=== PATIENT | male | born 1990 ===

== ENCOUNTER 2018-10-29 16:43 | Inpatient (IN) ==
[2018-10-29] MEDS ORDERED: CEFTAROLINE 600 MG in SODIUM CHLORIDE 0.9% 100 ML IV STA (16:50)
[2018-10-29 17:21] LABS: Basophils # 0.1 10*3/uL (0.0-0.2); Basophils % 0.4 % (0.0-0.8); Eosinophils # 0.5 10*3/uL (0.0-0.87); Eosinophils % 3.9 % (0.00-10.9); Hematocrit 29.8 VOL% (42.0-52.0); Hemoglobin 9.9 GM/DL (14.0-18.0); Immature Granulocytes % 0.9 %; Immature Granulocytes Absolute 0.11 #; Lymphocytes # 1.9 10*3/uL (1.4-4.0); Lymphocytes % 14.6 % (21.2-54.2); Mean Corpuscular HGB Conc 33.2 GM/DL (32-36); Mean Platelet Volume 10.2 FL (9.6-12.0); Monocytes % 11.5 % (1.7-12.7); Neutrophils % 68.7 % (38.7-73.9); Platelet Count 277 T/CUMM (130-400); Red Blood Count 3.35 MC/CUMM (3.8-5.5); Red Cell Distribution Width 12.7 % (9.3-17.3); White Blood Count 12.7 T/CUMM (4-12)
[2018-10-29 17:41] LABS: Albumin 2.5 G/DL (3.4-5.0); Bilirubin,Total 0.5 MG/DL (0.2-1.0); Calcium 8.1 MG/DL (8.5-10.1); Osmolality,Calculated 285.8 MOS/KG (273-304); Total Protein 7.5 G/DL (6.4-8.3)
[2018-10-29] MEDS ORDERED: ACETAMINOPHEN 325 MG TABLET PO PRN (19:41)
[2018-10-29] MEDS ORDERED: ONDANSETRON 4 MG/2 ML VIAL IV PRN (19:41)
[2018-10-29] MEDS ORDERED: HYDROmorphone 2 MG/1 ML VIAL IV PRN (19:41)
[2018-10-29] MEDS ORDERED: DEXTROSE 10% 250 ML BAG IV PRN (19:41)
[2018-10-29] MEDS ORDERED: GLUCAGON 1 MG VIAL IM PRN (19:41)
[2018-10-29] MEDS: LACTATED RINGERS 1,000 ML IV SCH (20:43)
[2018-10-29] MEDS: ENOXAPARIN 40 MG/0.4 ML SYRINGE SUBCUT SCH (20:43)
[2018-10-29] MEDS: INSULIN REGULAR 100 UNIT/ML SUBCUT SCH (20:44)
[2018-10-29] MEDS: PIPERACILLIN/TAZOBACTAM 3,375 MG in SODIUM CHLORIDE 0.9% 100 ML IV SCH (20:44)
[2018-10-30] MEDS: VANCOMYCIN INJ 750 MG in SODIUM CHLORIDE 0.9% 250 ML IV SCH ×2 (01:06→12:01)
[2018-10-30] MEDS: PIPERACILLIN/TAZOBACTAM 3,375 MG in SODIUM CHLORIDE 0.9% 100 ML IV SCH ×3 (04:35→21:26)
[2018-10-30 04:54] LABS: Basophils % 0.3 % (0.0-0.8); Eosinophils # 0.4 10*3/uL (0.0-0.87); Eosinophils % 4.4 % (0.00-10.9); Hematocrit 29.3 VOL% (42.0-52.0); Hemoglobin 9.3 GM/DL (14.0-18.0); Immature Granulocytes % 0.6 %; Immature Granulocytes Absolute 0.06 #; Lymphocytes # 1.1 10*3/uL (1.4-4.0); Lymphocytes % 10.8 % (21.2-54.2); Mean Corpuscular HGB Conc 31.7 GM/DL (32-36); Mean Corpuscular Volume 91.3 FL (87-102); Mean Platelet Volume 10.6 FL (9.6-12.0); Monocytes % 9.9 % (1.7-12.7); Platelet Count 255 T/CUMM (130-400); Red Blood Count 3.21 MC/CUMM (3.8-5.5); Red Cell Distribution Width 12.9 % (9.3-17.3); White Blood Count 9.9 T/CUMM (4-12)
[2018-10-30 05:34] LABS: Band Neutrophils 3 % (0-10); Eosinophils 6 % (0-10); Lymphocytes 12 % (20-55); Platelet Estimate Normal; Segmented Neutrophils 75 % (50-85); Total Cells Counted 100
[2018-10-30 05:40] LABS: Albumin 2.4 G/DL (3.4-5.0); Bilirubin,Total 0.5 MG/DL (0.2-1.0); Calcium 8.4 MG/DL (8.5-10.1); Osmolality,Calculated 292.7 MOS/KG (273-304); Total Protein 6.8 G/DL (6.4-8.3)
[2018-10-30] MEDS ORDERED: BUPIVACAINE MPF 0.25% /EPI 30 ML VIAL ONE (08:20)
[2018-10-30] MEDS ORDERED: LIDOCAINE 1%/EPI INJ 20 ML VIAL ONE (08:20)
[2018-10-30] MEDS ORDERED: LIDOCAINE 2% TOP JELLY 20 ML VIAL INTRAURETH ONE (08:23)
[2018-10-30] MEDS: INSULIN REGULAR 100 UNIT/ML SUBCUT SCH ×5 (08:28→23:21)
[2018-10-30] MEDS ORDERED: PROPOFOL 200 MG/20 ML VIAL IV ONE (09:35)
[2018-10-30] MEDS ORDERED: SEVOFLURANE 1 UNIT/15 MINUTE INH ONE (09:35)
[2018-10-30] MEDS ORDERED: DEXAMETHASONE 4 MG/1 ML VIAL ONE (09:35)
[2018-10-30] MEDS ORDERED: fentaNYL 100 MCG/2 ML VIAL ONE (09:35)
[2018-10-30] MEDS ORDERED: MIDAZOLAM 2 MG/2 ML VIAL ONE (09:35)
[2018-10-30] MEDS ORDERED: LACTATED RINGERS 1,000 ML IV ONE (09:36)
[2018-10-30] MEDS ORDERED: PHENYLEPHRINE 1 MG/10 ML SYRINGE IV ONE (09:36)
[2018-10-30] MEDS ORDERED: KETOROLAC 30 MG/1 ML VIAL ONE (09:36)
[2018-10-30] MEDS ORDERED: ONDANSETRON 4 MG/2 ML VIAL ONE (09:36)
[2018-10-30] MEDS ORDERED: HYDROmorphone 2 MG/1 ML VIAL IV PRN (09:40)
[2018-10-30] MEDS ORDERED: ONDANSETRON 4 MG/2 ML VIAL IV PRN (09:40)
[2018-10-30] MEDS ORDERED: INSULIN REGULAR 100 UNIT/ML ONE (09:52)
[2018-10-30] MEDS: PANTOPRAZOLE 40 MG TABLET PO SCH (10:20)
[2018-10-30] MEDS: LACTATED RINGERS 1,000 ML IV SCH (10:25)
[2018-10-30] MEDS ORDERED: INSULIN NPH/REGULAR 70/30 100 UNIT/ML SUBCUT ONE (13:00)
[2018-10-30] MEDS ORDERED: INSULIN LISPRO 100 UNIT/ML SUBCUT SCH (17:00)
[2018-10-30] MEDS: INSULIN NPH/REGULAR 70/30 100 UNIT/ML SUBCUT SCH (17:25)
[2018-10-30] MEDS: ENOXAPARIN 40 MG/0.4 ML SYRINGE SUBCUT SCH (21:25)
[2018-10-31] MEDS: VANCOMYCIN INJ 750 MG in SODIUM CHLORIDE 0.9% 250 ML IV SCH ×2 (01:30→12:03)
[2018-10-31 04:59] LABS: Basophils % 0.2 % (0.0-0.8); Eosinophils # 0.4 10*3/uL (0.0-0.87); Eosinophils % 3.2 % (0.00-10.9); Hematocrit 27.1 VOL% (42.0-52.0); Hemoglobin 8.9 GM/DL (14.0-18.0); Immature Granulocytes % 0.7 %; Immature Granulocytes Absolute 0.08 #; Lymphocytes # 2.1 10*3/uL (1.4-4.0); Lymphocytes % 17.3 % (21.2-54.2); Mean Corpuscular HGB Conc 32.8 GM/DL (32-36); Mean Platelet Volume 10.5 FL (9.6-12.0); Monocytes % 7.9 % (1.7-12.7); Neutrophils % 70.7 % (38.7-73.9); Platelet Count 270 T/CUMM (130-400); Red Blood Count 3.01 MC/CUMM (3.8-5.5); Red Cell Distribution Width 13.1 % (9.3-17.3); White Blood Count 12.3 T/CUMM (4-12)
[2018-10-31] MEDS: PIPERACILLIN/TAZOBACTAM 3,375 MG in SODIUM CHLORIDE 0.9% 100 ML IV SCH ×3 (05:10→21:10)
[2018-10-31 05:21] LABS: Osmolality,Calculated 283.3 MOS/KG (273-304)
[2018-10-31] MEDS ORDERED: INSULIN LISPRO 100 UNIT/ML SUBCUT SCH (08:00)
[2018-10-31] MEDS: PANTOPRAZOLE 40 MG TABLET PO SCH (08:45)
[2018-10-31] MEDS: INSULIN REGULAR 100 UNIT/ML SUBCUT SCH ×4 (08:45→21:17)
[2018-10-31] MEDS: INSULIN NPH/REGULAR 70/30 100 UNIT/ML SUBCUT SCH ×2 (08:46→16:27)
[2018-10-31] MEDS ORDERED: POTASSIUM CHLORIDE 20 MEQ TABLET PO PRN (13:04)
[2018-10-31] MEDS: LACTATED RINGERS 1,000 ML IV SCH (18:13)
[2018-10-31] MEDS ORDERED: INSULIN GLARGINE 100 UNIT/ML SUBCUT SCH (21:00)
[2018-10-31] MEDS: ENOXAPARIN 40 MG/0.4 ML SYRINGE SUBCUT SCH (21:10)
[2018-11-01] MEDS: VANCOMYCIN INJ 750 MG in SODIUM CHLORIDE 0.9% 250 ML IV SCH ×3 (01:05→12:15)
[2018-11-01 01:10] LABS: Basophils % 0.3 % (0.0-0.8); Eosinophils # 0.4 10*3/uL (0.0-0.87); Eosinophils % 3.8 % (0.00-10.9); Hematocrit 28.3 VOL% (42.0-52.0); Hemoglobin 9.5 GM/DL (14.0-18.0); Immature Granulocytes % 1.1 %; Immature Granulocytes Absolute 0.11 #; Lymphocytes # 2.2 10*3/uL (1.4-4.0); Lymphocytes % 22.3 % (21.2-54.2); Mean Corpuscular HGB Conc 33.6 GM/DL (32-36); Mean Corpuscular Volume 89.8 FL (87-102); Mean Platelet Volume 10.4 FL (9.6-12.0); Monocytes % 7.9 % (1.7-12.7); Neutrophils % 64.6 % (38.7-73.9); Platelet Count 279 T/CUMM (130-400); Red Blood Count 3.15 MC/CUMM (3.8-5.5); Red Cell Distribution Width 13.1 % (9.3-17.3); White Blood Count 9.7 T/CUMM (4-12)
[2018-11-01 01:27] LABS: Osmolality,Calculated 287.3 MOS/KG (273-304)
[2018-11-01] MEDS: PIPERACILLIN/TAZOBACTAM 3,375 MG in SODIUM CHLORIDE 0.9% 100 ML IV SCH ×3 (05:15→20:53)
[2018-11-01] MEDS: PANTOPRAZOLE 40 MG TABLET PO SCH (09:24)
[2018-11-01] MEDS: INSULIN NPH/REGULAR 70/30 100 UNIT/ML SUBCUT SCH ×2 (09:24→16:41)
[2018-11-01] MEDS: INSULIN REGULAR 100 UNIT/ML SUBCUT SCH ×4 (09:26→20:55)
[2018-11-01] MEDS: ENOXAPARIN 40 MG/0.4 ML SYRINGE SUBCUT SCH (20:53)
[2018-11-02] MEDS: VANCOMYCIN INJ 750 MG in SODIUM CHLORIDE 0.9% 250 ML IV SCH (00:54)
[2018-11-02] MEDS: PIPERACILLIN/TAZOBACTAM 3,375 MG in SODIUM CHLORIDE 0.9% 100 ML IV SCH (05:23)
[2018-11-02 08:20] VITALS: BP 134/65
[2018-11-02] MEDS ORDERED: CLINDAMYCIN 300 MG CAPSULE PO SCH (09:00)
[2018-11-02] MEDS ORDERED: FLUCONAZOLE 200 MG TABLET PO SCH (09:00)
[2018-11-02] MEDS ORDERED: CHOLESTYRAMINE 4 GM PACK PO SCH (09:00)
[2018-11-02] MEDS: INSULIN REGULAR 100 UNIT/ML SUBCUT SCH (10:33)
[2018-11-02] MEDS: INSULIN NPH/REGULAR 70/30 100 UNIT/ML SUBCUT SCH (10:34)
[2018-11-02] MEDS: PANTOPRAZOLE 40 MG TABLET PO SCH (10:35)
== END 2018-11-02 12:15 | disposition home or self-care (01) | DRG 982 ==
LOC: EDUNIT# → EDBD → N.ED 16:43 → N.EDINP 17:15 → N.2E 19:09
PROVIDERS: ADMIT Surgery; ATTEND Surgery

== ENCOUNTER 2018-12-09 09:45 | Inpatient (IN) ==
[2018-12-09] MEDS ORDERED: SODIUM CHLORIDE 0.9% 1,000 ML IV STA (10:08)
[2018-12-09 10:23] LABS: Basophils % 0.2 % (0.0-0.8); Eosinophils # 0.1 10*3/uL (0.0-0.87); Eosinophils % 0.7 % (0.00-10.9); Hematocrit 31.3 VOL% (42.0-52.0); Hemoglobin 10.2 GM/DL (14.0-18.0); Immature Granulocytes % 0.7 %; Immature Granulocytes Absolute 0.12 #; Lymphocytes # 0.9 10*3/uL (1.4-4.0); Lymphocytes % 4.9 % (21.2-54.2); Mean Corpuscular HGB Conc 32.6 GM/DL (32-36); Mean Corpuscular Volume 88.7 FL (87-102); Monocytes % 7.6 % (1.7-12.7); Neutrophils % 85.9 % (38.7-73.9); Platelet Count 360 T/CUMM (130-400); Red Blood Count 3.53 MC/CUMM (3.8-5.5); Red Cell Distribution Width 12.2 % (9.3-17.3); White Blood Count 17.7 T/CUMM (4-12)
[2018-12-09 10:43] LABS: Allen Test Positive; Pt O2 Delivery Device Room Air
[2018-12-09 10:44] LABS: ABG Base Excess -7.4 MMOL/L (-2.5-2.5); ABG HCO3 18.4 MMOL/L (20-26); ABG Oxygen Saturation 98.1 % (95-100); ABG PCO2 35.9 MM HG (35-48); ABG PH 7.313 (7.35-7.45); ABG TCO2 16.5 MMOL/L (23-27)
[2018-12-09 10:53] LABS: Albumin 2.4 G/DL (3.4-5.0); Bilirubin,Total 0.5 MG/DL (0.2-1.0); Osmolality,Calculated 289.1 MOS/KG (273-304); Total Protein 8.2 G/DL (6.4-8.3)
[2018-12-09 10:56] LABS: Amorphous Crystals,Urine Occasional /HPF (Few); Apearance,Urine CLEAR (Clear); Bacteria,Urine Occasional /HPF (Few); Bilirubin,Urine Negative (Negative); Blood, Urine Negative (Negative); Glucose,Urine (UA) >=500 mg/dL (Negative); Ketones,Urine Negative (Negative); Mucus,Urine Occasional /LPF (Occasional); Nitrite,Urine Negative (Negative); Protein,Urine Negative; RBC,Urine <1 /HPF (0-4); Squamous Epithelial Cell,Urine Occasional /HPF (0-10); Urine Color Straw (Yellow); Urine Specific Gravity 1.025 (1.001-1.035); Urine Urobilinogen < 2.0 EU/DL (0.2-1.0); WBC,Urine <1 /HPF (0-6)
[2018-12-09] MEDS ORDERED: INSULIN REGULAR 100 UNIT/ML IV STA (10:56)
[2018-12-09 10:58] LABS: Band Neutrophils 2 % (0-10); Eosinophils 1 % (0-10); Lymphocytes 5 % (20-55); Platelet Estimate Normal; Segmented Neutrophils 86 % (50-85); Total Cells Counted 100
[2018-12-09 10:59] LABS: Anisocytosis Slight
[2018-12-09 11:38] LABS: Barbiturates Screen,Urine Negative (Negative); Benzodiazepines Screen,Urine Negative (Negative); Cannabinoid Screen,Urine Negative (Negative); Opiate Screen,Urine Negative (Negative); Phencyclidine Screen,Urine Negative (Negative)
[2018-12-09] MEDS ORDERED: INSULIN REGULAR 100 UNIT/ML IV ONE ×4 (12:35→23:12)
[2018-12-09] MEDS ORDERED: SODIUM CHLORIDE 0.9% IV PRN (12:35)
[2018-12-09] MEDS ORDERED: MAGNESIUM SULF RIDER 2 GM in PREMIX 1 EACH IV PRN (12:35)
[2018-12-09] MEDS ORDERED: SODIUM BICARB INJ 100 MEQ in STERILE WATER INJ 400 ML IV PRN (12:35)
[2018-12-09] MEDS ORDERED: SODIUM CHLORIDE 0.9% 1,000 ML IV ONE (12:35)
[2018-12-09] MEDS ORDERED: INSULIN REGULAR DRIP 100 ML IV SCH (12:35)
[2018-12-09] MEDS ORDERED: SODIUM PHOSPHATE IV PRN (12:35)
[2018-12-09] MEDS ORDERED: DEXTROSE 50% 25 GM/50 ML VIAL IV PRN ×2 (12:35)
[2018-12-09] MEDS ORDERED: MAGNESIUM SULF RIDER 4 GM in PREMIX 1 EACH IV PRN (12:35)
[2018-12-09] MEDS ORDERED: VANCOMYCIN INJ 1,000 MG in SODIUM CHLORIDE 0.9% 250 ML IV SCH (13:00)
[2018-12-09] MEDS: ENOXAPARIN 40 MG/0.4 ML SYRINGE SUBCUT SCH (13:21)
[2018-12-09 13:39] LABS: ABG Base Excess -7.8 MMOL/L (-2.5-2.5); ABG HCO3 18.1 MMOL/L (20-26); ABG Oxygen Saturation 97.8 % (95-100); ABG PCO2 33.9 MM HG (35-48); ABG PH 7.321 (7.35-7.45); ABG TCO2 16.1 MMOL/L (23-27); Pt O2 Delivery Device Room Air
[2018-12-09 13:57] LABS: Calcium 7.6 MG/DL (8.5-10.1)
[2018-12-09] MEDS ORDERED: LIDOCAINE MPF 1% /EPI 30 ML VIAL ONE (14:07)
[2018-12-09] MEDS ORDERED: BUPIVACAINE MPF 0.25% /EPI 30 ML VIAL ONE (14:07)
[2018-12-09] MEDS ORDERED: PROPOFOL 200 MG/20 ML VIAL IV ONE (15:12)
[2018-12-09] MEDS ORDERED: MIDAZOLAM 2 MG/2 ML VIAL ONE (15:12)
[2018-12-09] MEDS ORDERED: fentaNYL 100 MCG/2 ML VIAL ONE (15:12)
[2018-12-09] MEDS: SODIUM CHLORIDE 0.9% 1,000 ML IV SCH ×2 (15:41→17:32)
[2018-12-09] MEDS ORDERED: SODIUM CHLORIDE 0.9% 1,000 ML IV SCH (16:24)
[2018-12-09] MEDS: POTASSIUM CHLORIDE RIDER 10 MEQ in PREMIX 1 EACH IV PRN ×2 (16:36→18:09)
[2018-12-09 17:06] LABS: Calcium 7.2 MG/DL (8.5-10.1); Osmolality,Calculated 285.5 MOS/KG (273-304)
[2018-12-09 22:05] LABS: Calcium 7.2 MG/DL (8.5-10.1); Osmolality,Calculated 285.7 MOS/KG (273-304)
[2018-12-10] MEDS: SODIUM CHLORIDE 0.45% 1,000 ML IV SCH ×2 (00:10→05:18)
[2018-12-10] MEDS: POTASSIUM CHLORIDE RIDER 10 MEQ in PREMIX 1 EACH IV PRN ×7 (00:11→06:09)
[2018-12-10 01:08] LABS: Basophils # 0.1 10*3/uL (0.0-0.2); Basophils % 0.3 % (0.0-0.8); Eosinophils # 0.2 10*3/uL (0.0-0.87); Hematocrit 28.3 VOL% (42.0-52.0); Hemoglobin 9.2 GM/DL (14.0-18.0); Immature Granulocytes % 0.9 %; Immature Granulocytes Absolute 0.15 #; Lymphocytes # 1.5 10*3/uL (1.4-4.0); Lymphocytes % 8.7 % (21.2-54.2); Mean Corpuscular HGB Conc 32.5 GM/DL (32-36); Mean Corpuscular Volume 89.3 FL (87-102); Mean Platelet Volume 10.1 FL (9.6-12.0); Monocytes % 6.2 % (1.7-12.7); Neutrophils % 82.9 % (38.7-73.9); Platelet Count 357 T/CUMM (130-400); Red Blood Count 3.17 MC/CUMM (3.8-5.5); Red Cell Distribution Width 12.2 % (9.3-17.3); White Blood Count 17.5 T/CUMM (4-12)
[2018-12-10 01:28] LABS: Calcium 7.2 MG/DL (8.5-10.1); Osmolality,Calculated 287.4 MOS/KG (273-304)
[2018-12-10] MEDS ORDERED: DEXTROSE 5% NACL 0.45% 1,000 ML IV SCH ×2 (02:30→06:30)
[2018-12-10] MEDS ORDERED: SODIUM CHLORIDE 0.45% 1,000 ML IV SCH (04:24)
[2018-12-10 04:38] LABS: Calcium 7.1 MG/DL (8.5-10.1); Osmolality,Calculated 279.5 MOS/KG (273-304)
[2018-12-10] MEDS ORDERED: GLUCAGON 1 MG VIAL IM PRN ×2 (04:52→19:33)
[2018-12-10] MEDS: INSULIN REGULAR 100 UNIT/ML SUBCUT SCH ×6 (06:02→20:23)
[2018-12-10 08:16] LABS: Calcium 7.5 MG/DL (8.5-10.1); Osmolality,Calculated 277.8 MOS/KG (273-304)
[2018-12-10] MEDS: VANCOMYCIN INJ 1,000 MG in SODIUM CHLORIDE 0.9% 250 ML IV SCH ×2 (08:48→20:22)
[2018-12-10] MEDS ORDERED: INSULIN GLARGINE 100 UNIT/ML SUBCUT SCH (10:00)
[2018-12-10 10:03] LABS: Basophils % 0.2 % (0.0-0.8); Eosinophils # 0.3 10*3/uL (0.0-0.87); Eosinophils % 1.5 % (0.00-10.9); Hematocrit 28.3 VOL% (42.0-52.0); Hemoglobin 9.4 GM/DL (14.0-18.0); Immature Granulocytes % 0.6 %; Lymphocytes # 1.7 10*3/uL (1.4-4.0); Lymphocytes % 9.8 % (21.2-54.2); Mean Corpuscular HGB Conc 33.2 GM/DL (32-36); Mean Corpuscular Volume 90.1 FL (87-102); Monocytes % 7.2 % (1.7-12.7); Neutrophils % 80.7 % (38.7-73.9); Platelet Count 361 T/CUMM (130-400); Red Blood Count 3.14 MC/CUMM (3.8-5.5); Red Cell Distribution Width 12.4 % (9.3-17.3); White Blood Count 17.6 T/CUMM (4-12)
[2018-12-10 10:19] LABS: Calcium 7.6 MG/DL (8.5-10.1)
[2018-12-10] MEDS ORDERED: SODIUM CHLORIDE 0.9% 1,000 ML IV SCH (11:00)
[2018-12-10] MEDS: SODIUM CHLORIDE 0.9% 1,000 ML IV SCH ×2 (11:09→17:51)
[2018-12-10] MEDS: ENOXAPARIN 40 MG/0.4 ML SYRINGE SUBCUT SCH (15:35)
[2018-12-10] MEDS: SODIUM HYPOCHLORITE 0.25% IRRIG 473 ML BOTTLE TOP SCH (15:44)
[2018-12-10] MEDS: INSULIN LISPRO 100 UNIT/ML SUBCUT SCH (20:23)
[2018-12-10] MEDS: INSULIN GLARGINE 100 UNIT/ML SUBCUT SCH (20:24)
[2018-12-11] MEDS: SODIUM CHLORIDE 0.9% 1,000 ML IV SCH ×3 (03:58→16:08)
[2018-12-11 05:43] LABS: Basophils % 0.3 % (0.0-0.8); Eosinophils # 0.3 10*3/uL (0.0-0.87); Eosinophils % 2.3 % (0.00-10.9); Hematocrit 27.8 VOL% (42.0-52.0); Hemoglobin 8.9 GM/DL (14.0-18.0); Immature Granulocytes % 0.5 %; Immature Granulocytes Absolute 0.07 #; Lymphocytes # 2.3 10*3/uL (1.4-4.0); Lymphocytes % 16.1 % (21.2-54.2); Mean Corpuscular Volume 90.8 FL (87-102); Mean Platelet Volume 9.8 FL (9.6-12.0); Monocytes % 6.8 % (1.7-12.7); Platelet Count 347 T/CUMM (130-400); Red Blood Count 3.06 MC/CUMM (3.8-5.5); Red Cell Distribution Width 12.4 % (9.3-17.3)
[2018-12-11 06:04] LABS: Calcium 7.6 MG/DL (8.5-10.1); Osmolality,Calculated 279.1 MOS/KG (273-304)
[2018-12-11] MEDS: INSULIN LISPRO 100 UNIT/ML SUBCUT SCH ×4 (08:20→22:39)
[2018-12-11] MEDS: INSULIN GLARGINE 100 UNIT/ML SUBCUT SCH (08:22)
[2018-12-11] MEDS: INSULIN REGULAR 100 UNIT/ML SUBCUT SCH ×4 (08:22→22:39)
[2018-12-11] MEDS: VANCOMYCIN INJ 1,000 MG in SODIUM CHLORIDE 0.9% 250 ML IV SCH ×2 (09:08→21:19)
[2018-12-11] MEDS: SODIUM HYPOCHLORITE 0.25% IRRIG 473 ML BOTTLE TOP SCH (09:19)
[2018-12-11] MEDS: CHLORHEXIDINE 4% SOLN 118 ML BOTTLE TOP SCH (09:19)
[2018-12-11] MEDS: ENOXAPARIN 40 MG/0.4 ML SYRINGE SUBCUT SCH (12:52)
[2018-12-12 05:34] LABS: Basophils % 0.3 % (0.0-0.8); Eosinophils # 0.3 10*3/uL (0.0-0.87); Eosinophils % 2.7 % (0.00-10.9); Hematocrit 27.9 VOL% (42.0-52.0); Hemoglobin 8.9 GM/DL (14.0-18.0); Immature Granulocytes % 0.8 %; Immature Granulocytes Absolute 0.09 #; Lymphocytes % 17.1 % (21.2-54.2); Mean Corpuscular HGB Conc 31.9 GM/DL (32-36); Mean Corpuscular Volume 91.2 FL (87-102); Mean Platelet Volume 9.7 FL (9.6-12.0); Monocytes % 6.7 % (1.7-12.7); Neutrophils % 72.4 % (38.7-73.9); Platelet Count 400 T/CUMM (130-400); Red Blood Count 3.06 MC/CUMM (3.8-5.5); Red Cell Distribution Width 12.7 % (9.3-17.3); White Blood Count 11.6 T/CUMM (4-12)
[2018-12-12 05:58] LABS: Calcium 7.9 MG/DL (8.5-10.1); Osmolality,Calculated 290.8 MOS/KG (273-304)
[2018-12-12] MEDS: SODIUM CHLORIDE 0.9% 1,000 ML IV SCH ×4 (06:12→15:41)
[2018-12-12] MEDS: INSULIN REGULAR 100 UNIT/ML SUBCUT SCH ×2 (07:52→12:11)
[2018-12-12] MEDS: INSULIN LISPRO 100 UNIT/ML SUBCUT SCH ×2 (07:53→12:10)
[2018-12-12] MEDS ORDERED: INSULIN GLARGINE 100 UNIT/ML SUBCUT SCH (09:00)
[2018-12-12] MEDS: SODIUM HYPOCHLORITE 0.25% IRRIG 473 ML BOTTLE TOP SCH (09:25)
[2018-12-12] MEDS: CHLORHEXIDINE 4% SOLN 118 ML BOTTLE TOP SCH (09:26)
[2018-12-12 12:17] VITALS: BP 109/79
[2018-12-12] MEDS: ENOXAPARIN 40 MG/0.4 ML SYRINGE SUBCUT SCH (12:54)
[2018-12-12] MEDS ORDERED: VANCOMYCIN INJ 1,000 MG in SODIUM CHLORIDE 0.9% 250 ML IV SCH (15:00)
== END 2018-12-12 17:01 | disposition home or self-care (01) | DRG 988 ==
LOC: EDBD → EDUNIT# → N.ED 09:45 → N.EDINP 10:57 → SUATTDRO 10:57 → N.CC 12:32 → N.3E 12-10 19:24
PROVIDERS: ADMIT Internal Medicine; ATTEND Internal Medicine

== ENCOUNTER 2019-04-26 15:21 | Inpatient (IN) ==
[2019-04-26 16:09] LABS: Basophils # 0.1 10*3/uL (0.0-0.2); Basophils % 0.2 % (0.0-0.8); Eosinophils # 0.8 10*3/uL (0.0-0.87); Eosinophils % 3.5 % (0.00-10.9); Hematocrit 26.2 VOL% (42.0-52.0); Hemoglobin 7.9 GM/DL (14.0-18.0); Immature Granulocytes % 1.3 %; Immature Granulocytes Absolute 0.28 #; Lymphocytes # 1.8 10*3/uL (1.4-4.0); Lymphocytes % 8.2 % (21.2-54.2); Mean Corpuscular HGB Conc 30.2 GM/DL (32-36); Mean Corpuscular Volume 92.6 FL (87-102); Mean Platelet Volume 9.2 FL (9.6-12.0); Monocytes % 4.1 % (1.7-12.7); Neutrophils % 82.7 % (38.7-73.9); Platelet Count 484 T/CUMM (130-400); Red Blood Count 2.83 MC/CUMM (3.8-5.5); Red Cell Distribution Width 12.8 % (9.3-17.3); White Blood Count 21.8 T/CUMM (4-12)
[2019-04-26 16:23] LABS: Calcium 8.3 MG/DL (8.5-10.1); Osmolality,Calculated 280.9 MOS/KG (273-304)
[2019-04-26] MEDS ORDERED: PIPERACILLIN/TAZOBACTAM 3,375 MG in SODIUM CHLORIDE 0.9% 100 ML IV STA (17:03)
[2019-04-26] MEDS ORDERED: VANCOMYCIN INJ 1,000 MG in SODIUM CHLORIDE 0.9% 250 ML IV STA (17:03)
[2019-04-26 17:05] LABS: Eosinophils 7 % (0-10); Lymphocytes 1 % (20-55); Segmented Neutrophils 90 % (50-85)
[2019-04-26 17:06] LABS: Hypochromasia Slight; Microcytosis Slight; Platelet Estimate Adequate
[2019-04-26 17:08] LABS: Total Cells Counted 100
[2019-04-26] MEDS ORDERED: INSULIN LISPRO 100 UNIT/ML SUBCUT STA (17:31)
[2019-04-26] MEDS ORDERED: ONDANSETRON 4 MG/2 ML VIAL IV PRN (18:10)
[2019-04-26] MEDS ORDERED: GLUCAGON 1 MG VIAL IM PRN (18:16)
[2019-04-26] MEDS ORDERED: DEXTROSE 10% 250 ML BAG IV PRN (18:16)
[2019-04-26] MEDS: ENOXAPARIN 40 MG/0.4 ML SYRINGE SUBCUT SCH (18:51)
[2019-04-26] MEDS: SODIUM CHLORIDE 0.9% 1,000 ML IV SCH (20:00)
[2019-04-26] MEDS ORDERED: SODIUM CHLORIDE 0.9% 500 ML IV STA (20:46)
[2019-04-26] MEDS: INSULIN LISPRO 100 UNIT/ML SUBCUT SCH (22:55)
[2019-04-27] MEDS: PIPERACILLIN/TAZOBACTAM 3,375 MG in SODIUM CHLORIDE 0.9% 100 ML IV SCH ×3 (01:31→17:59)
[2019-04-27 05:30] LABS: Basophils # 0.1 10*3/uL (0.0-0.2); Basophils % 0.3 % (0.0-0.8); Eosinophils # 0.8 10*3/uL (0.0-0.87); Eosinophils % 4.6 % (0.00-10.9); Hematocrit 24.9 VOL% (42.0-52.0); Hemoglobin 7.6 GM/DL (14.0-18.0); Immature Granulocytes % 1.2 %; Lymphocytes # 2.1 10*3/uL (1.4-4.0); Mean Corpuscular HGB Conc 30.5 GM/DL (32-36); Mean Corpuscular Volume 91.9 FL (87-102); Mean Platelet Volume 9.2 FL (9.6-12.0); Monocytes % 3.9 % (1.7-12.7); Platelet Count 447 T/CUMM (130-400); Red Blood Count 2.71 MC/CUMM (3.8-5.5); Red Cell Distribution Width 12.8 % (9.3-17.3); White Blood Count 17.2 T/CUMM (4-12)
[2019-04-27 06:05] LABS: Calcium 8.2 MG/DL (8.5-10.1); Osmolality,Calculated 285.5 MOS/KG (273-304); Risk Ratio 1.94; Thyroid Stimulating Hormone 3.16 uIU/ml (0.358-3.74); VLDL CHOLESTEROL 17.6 MG/DL
[2019-04-27] MEDS: VANCOMYCIN INJ 1,000 MG in SODIUM CHLORIDE 0.9% 250 ML IV SCH ×2 (07:50→21:06)
[2019-04-27] MEDS: PANTOPRAZOLE 40 MG TABLET PO SCH (09:54)
[2019-04-27] MEDS: INSULIN LISPRO 100 UNIT/ML SUBCUT SCH ×3 (10:01→18:10)
[2019-04-27] MEDS: SODIUM CHLORIDE 0.9% 1,000 ML IV SCH ×3 (10:02→18:12)
[2019-04-27] MEDS: ENOXAPARIN 40 MG/0.4 ML SYRINGE SUBCUT SCH (18:12)
[2019-04-27] MEDS: MORPHINE 4 MG/1 ML VIAL IV PRN (18:57)
[2019-04-28] MEDS: INSULIN LISPRO 100 UNIT/ML SUBCUT SCH ×5 (01:42→22:35)
[2019-04-28] MEDS: PIPERACILLIN/TAZOBACTAM 3,375 MG in SODIUM CHLORIDE 0.9% 100 ML IV SCH ×3 (03:22→17:06)
[2019-04-28] MEDS: SODIUM CHLORIDE 0.9% 1,000 ML IV SCH ×3 (03:23→22:36)
[2019-04-28 05:53] LABS: Basophils % 0.3 % (0.0-0.8); Eosinophils # 0.9 10*3/uL (0.0-0.87); Eosinophils % 5.9 % (0.00-10.9); Hematocrit 23.7 VOL% (42.0-52.0); Hemoglobin 7.2 GM/DL (14.0-18.0); Immature Granulocytes % 0.9 %; Immature Granulocytes Absolute 0.14 #; Lymphocytes # 2.2 10*3/uL (1.4-4.0); Lymphocytes % 14.7 % (21.2-54.2); Mean Corpuscular HGB Conc 30.4 GM/DL (32-36); Mean Corpuscular Volume 93.7 FL (87-102); Mean Platelet Volume 9.3 FL (9.6-12.0); Neutrophils % 73.2 % (38.7-73.9); Platelet Count 488 T/CUMM (130-400); Red Blood Count 2.53 MC/CUMM (3.8-5.5); White Blood Count 15.2 T/CUMM (4-12)
[2019-04-28 06:01] LABS: Calcium 7.8 MG/DL (8.5-10.1); Osmolality,Calculated 291.3 MOS/KG (273-304)
[2019-04-28] MEDS: VANCOMYCIN INJ 1,000 MG in SODIUM CHLORIDE 0.9% 250 ML IV SCH ×2 (08:37→21:08)
[2019-04-28] MEDS: PANTOPRAZOLE 40 MG TABLET PO SCH (09:23)
[2019-04-28] MEDS: ENOXAPARIN 40 MG/0.4 ML SYRINGE SUBCUT SCH (18:11)
[2019-04-28] MEDS: MORPHINE 4 MG/1 ML VIAL IV PRN (20:32)
[2019-04-29] MEDS: PIPERACILLIN/TAZOBACTAM 3,375 MG in SODIUM CHLORIDE 0.9% 100 ML IV SCH (03:37)
[2019-04-29 05:38] LABS: Basophils % 0.3 % (0.0-0.8); Eosinophils # 0.7 10*3/uL (0.0-0.87); Eosinophils % 6.2 % (0.00-10.9); Hematocrit 23.6 VOL% (42.0-52.0); Immature Granulocytes Absolute 0.11 #; Lymphocytes # 1.8 10*3/uL (1.4-4.0); Lymphocytes % 15.7 % (21.2-54.2); Mean Corpuscular HGB Conc 29.7 GM/DL (32-36); Mean Corpuscular Volume 94.8 FL (87-102); Mean Platelet Volume 9.3 FL (9.6-12.0); Monocytes % 4.8 % (1.7-12.7); Platelet Count 441 T/CUMM (130-400); Red Blood Count 2.49 MC/CUMM (3.8-5.5); Red Cell Distribution Width 13.1 % (9.3-17.3); White Blood Count 11.6 T/CUMM (4-12)
[2019-04-29 05:47] LABS: Calcium 7.5 MG/DL (8.5-10.1); Osmolality,Calculated 290.1 MOS/KG (273-304)
[2019-04-29] MEDS: SODIUM CHLORIDE 0.9% 1,000 ML IV SCH ×3 (06:47→18:14)
[2019-04-29 07:29] LABS: Apearance,Urine CLOUDY (Clear); Bilirubin,Urine Negative (Negative); Blood, Urine Moderate mg/dL (Negative); Glucose,Urine (UA) 150 mg/dL (Negative); Ketones,Urine Negative (Negative); Nitrite,Urine Negative (Negative); Protein,Urine Negative; RBC,Urine 10 /HPF (0-4); Urine Color Yellow (Yellow); Urine Specific Gravity 1.006 (1.001-1.035); Urine Urobilinogen < 2.0 EU/DL (0.2-1.0); WBC,Urine 1399 /HPF (0-6)
[2019-04-29] MEDS ORDERED: SODIUM CHLORIDE 0.9% 1,000 ML IV PRN (08:57)
[2019-04-29] MEDS: AMOXICILLIN 500 MG CAPSULE PO SCH ×2 (09:07→21:49)
[2019-04-29] MEDS: INSULIN LISPRO 100 UNIT/ML SUBCUT SCH ×4 (09:07→21:04)
[2019-04-29] MEDS: PANTOPRAZOLE 40 MG TABLET PO SCH (09:08)
[2019-04-29 09:28] LABS: % Iron Saturation 27.6 % (18-50); Ferritin 255.1 ng/ml (26-388)
[2019-04-29 09:35] LABS: Folate 4.8 NG/ML (5.4-24.0)
[2019-04-29] MEDS: VANCOMYCIN INJ 1,000 MG in SODIUM CHLORIDE 0.9% 250 ML IV SCH (18:15)
[2019-04-29] MEDS: INSULIN GLARGINE 100 UNIT/ML SUBCUT SCH (21:04)
[2019-04-30] MEDS: SODIUM CHLORIDE 0.9% 1,000 ML IV SCH ×4 (00:25→18:34)
[2019-04-30 05:23] LABS: Hematocrit 27.8 VOL% (42.0-52.0); Hemoglobin 8.4 GM/DL (14.0-18.0)
[2019-04-30 05:24] LABS: Basophils # 0.1 10*3/uL (0.0-0.2); Basophils % 0.3 % (0.0-0.8); Eosinophils # 0.8 10*3/uL (0.0-0.87); Eosinophils % 5.8 % (0.00-10.9); Hemoglobin 8.5 GM/DL (14.0-18.0); Immature Granulocytes % 0.7 %; Lymphocytes # 1.9 10*3/uL (1.4-4.0); Mean Corpuscular HGB Conc 30.4 GM/DL (32-36); Mean Corpuscular Volume 94.6 FL (87-102); Mean Platelet Volume 9.2 FL (9.6-12.0); Monocytes % 5.5 % (1.7-12.7); Neutrophils % 74.7 % (38.7-73.9); Platelet Count 491 T/CUMM (130-400); Red Blood Count 2.96 MC/CUMM (3.8-5.5); Red Cell Distribution Width 13.4 % (9.3-17.3); White Blood Count 14.4 T/CUMM (4-12)
[2019-04-30 05:50] LABS: Calcium 7.9 MG/DL (8.5-10.1); Osmolality,Calculated 285.3 MOS/KG (273-304)
[2019-04-30] MEDS: INSULIN LISPRO 100 UNIT/ML SUBCUT SCH ×4 (08:14→21:46)
[2019-04-30] MEDS: PANTOPRAZOLE 40 MG TABLET PO SCH (09:35)
[2019-04-30] MEDS: AMOXICILLIN 500 MG CAPSULE PO SCH ×2 (09:35→21:55)
[2019-04-30] MEDS: FERROUS SULFATE 325 MG TABLET PO SCH (21:55)
[2019-04-30] MEDS: INSULIN GLARGINE 100 UNIT/ML SUBCUT SCH (21:56)
[2019-05-01] MEDS: SODIUM CHLORIDE 0.9% 1,000 ML IV SCH (01:42)
[2019-05-01 05:04] LABS: Basophils % 0.3 % (0.0-0.8); Eosinophils # 0.9 10*3/uL (0.0-0.87); Eosinophils % 8.6 % (0.00-10.9); Hematocrit 30.3 VOL% (42.0-52.0); Hemoglobin 8.8 GM/DL (14.0-18.0); Immature Granulocytes % 0.8 %; Immature Granulocytes Absolute 0.08 #; Lymphocytes # 1.7 10*3/uL (1.4-4.0); Lymphocytes % 15.7 % (21.2-54.2); Mean Corpuscular Volume 96.5 FL (87-102); Monocytes % 6.2 % (1.7-12.7); Neutrophils % 68.4 % (38.7-73.9); Platelet Count 455 T/CUMM (130-400); Red Blood Count 3.14 MC/CUMM (3.8-5.5); Red Cell Distribution Width 13.8 % (9.3-17.3); White Blood Count 10.6 T/CUMM (4-12)
[2019-05-01 05:24] LABS: Osmolality,Calculated 286.1 MOS/KG (273-304)
[2019-05-01] MEDS: INSULIN LISPRO 100 UNIT/ML SUBCUT SCH ×4 (08:13→21:19)
[2019-05-01] MEDS: SODIUM BICARB INJ 50 MEQ in SODIUM CHLORIDE 0.45% 1,000 ML IV SCH ×2 (10:23→19:32)
[2019-05-01] MEDS: AMOXICILLIN 500 MG CAPSULE PO SCH ×2 (10:23→21:18)
[2019-05-01] MEDS: PANTOPRAZOLE 40 MG TABLET PO SCH (10:23)
[2019-05-01] MEDS: FERROUS SULFATE 325 MG TABLET PO SCH ×2 (10:23→21:18)
[2019-05-01] MEDS: MORPHINE 4 MG/1 ML VIAL IV PRN (19:29)
[2019-05-01] MEDS: INSULIN GLARGINE 100 UNIT/ML SUBCUT SCH (21:19)
[2019-05-02] MEDS: SODIUM CHLORIDE 0.9% 1,000 ML IV SCH ×3 (01:53→18:10)
[2019-05-02] MEDS: MORPHINE 4 MG/1 ML VIAL IV PRN ×3 (03:39→19:32)
[2019-05-02 04:33] LABS: Basophils % 0.2 % (0.0-0.8); Eosinophils # 0.7 10*3/uL (0.0-0.87); Eosinophils % 6.3 % (0.00-10.9); Hematocrit 28.2 VOL% (42.0-52.0); Hemoglobin 8.3 GM/DL (14.0-18.0); Immature Granulocytes % 0.8 %; Immature Granulocytes Absolute 0.09 #; Lymphocytes # 1.5 10*3/uL (1.4-4.0); Lymphocytes % 12.4 % (21.2-54.2); Mean Corpuscular HGB Conc 29.4 GM/DL (32-36); Mean Corpuscular Volume 97.2 FL (87-102); Mean Platelet Volume 9.3 FL (9.6-12.0); Monocytes % 5.4 % (1.7-12.7); Neutrophils % 74.9 % (38.7-73.9); Platelet Count 442 T/CUMM (130-400); Red Cell Distribution Width 13.7 % (9.3-17.3); White Blood Count 11.8 T/CUMM (4-12)
[2019-05-02 04:59] LABS: Calcium 7.7 MG/DL (8.5-10.1); Osmolality,Calculated 298.7 MOS/KG (273-304)
[2019-05-02] MEDS: SODIUM BICARB INJ 50 MEQ in SODIUM CHLORIDE 0.45% 1,000 ML IV SCH (05:41)
[2019-05-02] MEDS: INSULIN LISPRO 100 UNIT/ML SUBCUT SCH ×4 (08:50→20:45)
[2019-05-02] MEDS: AMOXICILLIN 500 MG CAPSULE PO SCH ×2 (08:52→20:45)
[2019-05-02] MEDS: FERROUS SULFATE 325 MG TABLET PO SCH ×2 (08:52→20:45)
[2019-05-02] MEDS: PANTOPRAZOLE 40 MG TABLET PO SCH (08:52)
[2019-05-02] MEDS: SODIUM BICARB INJ 100 MEQ in SODIUM CHLORIDE 0.45% 1,000 ML IV SCH ×2 (12:04→22:23)
[2019-05-02] MEDS: INSULIN GLARGINE 100 UNIT/ML SUBCUT SCH (20:45)
[2019-05-03] MEDS: SODIUM CHLORIDE 0.9% 1,000 ML IV SCH (03:17)
[2019-05-03 05:18] LABS: Basophils % 0.2 % (0.0-0.8); Eosinophils # 0.9 10*3/uL (0.0-0.87); Eosinophils % 8.4 % (0.00-10.9); Hematocrit 25.8 VOL% (42.0-52.0); Hemoglobin 7.8 GM/DL (14.0-18.0); Immature Granulocytes % 0.5 %; Immature Granulocytes Absolute 0.05 #; Lymphocytes # 1.9 10*3/uL (1.4-4.0); Lymphocytes % 17.1 % (21.2-54.2); Mean Corpuscular HGB Conc 30.2 GM/DL (32-36); Mean Corpuscular Volume 95.2 FL (87-102); Mean Platelet Volume 9.4 FL (9.6-12.0); Monocytes % 7.5 % (1.7-12.7); Neutrophils % 66.3 % (38.7-73.9); Platelet Count 457 T/CUMM (130-400); Red Blood Count 2.71 MC/CUMM (3.8-5.5); Red Cell Distribution Width 13.8 % (9.3-17.3); White Blood Count 10.9 T/CUMM (4-12)
[2019-05-03 05:58] LABS: Calcium 7.8 MG/DL (8.5-10.1)
[2019-05-03] MEDS: INSULIN LISPRO 100 UNIT/ML SUBCUT SCH ×4 (07:23→20:33)
[2019-05-03] MEDS: AMOXICILLIN 500 MG CAPSULE PO SCH ×2 (08:43→20:25)
[2019-05-03] MEDS: FERROUS SULFATE 325 MG TABLET PO SCH ×2 (08:43→20:25)
[2019-05-03] MEDS: PANTOPRAZOLE 40 MG TABLET PO SCH (08:43)
[2019-05-03] MEDS: SODIUM BICARB INJ 100 MEQ in SODIUM CHLORIDE 0.45% 1,000 ML IV SCH ×2 (10:55→21:43)
[2019-05-03] MEDS: MORPHINE 4 MG/1 ML VIAL IV PRN ×2 (15:23→20:30)
[2019-05-03] MEDS: INSULIN GLARGINE 100 UNIT/ML SUBCUT SCH (20:31)
[2019-05-04] MEDS: MORPHINE 4 MG/1 ML VIAL IV PRN (05:15)
[2019-05-04 06:30] LABS: Basophils % 0.3 % (0.0-0.8); Eosinophils # 1.2 10*3/uL (0.0-0.87); Eosinophils % 11.2 % (0.00-10.9); Hematocrit 25.4 VOL% (42.0-52.0); Hemoglobin 7.8 GM/DL (14.0-18.0); Immature Granulocytes % 0.5 %; Immature Granulocytes Absolute 0.05 #; Lymphocytes % 18.5 % (21.2-54.2); Mean Corpuscular HGB Conc 30.7 GM/DL (32-36); Mean Corpuscular Volume 93.7 FL (87-102); Mean Platelet Volume 9.2 FL (9.6-12.0); Monocytes % 7.6 % (1.7-12.7); Neutrophils % 61.9 % (38.7-73.9); Platelet Count 465 T/CUMM (130-400); Red Blood Count 2.71 MC/CUMM (3.8-5.5); Red Cell Distribution Width 13.8 % (9.3-17.3); White Blood Count 10.8 T/CUMM (4-12)
[2019-05-04 06:53] LABS: Calcium 7.4 MG/DL (8.5-10.1); Osmolality,Calculated 295.7 MOS/KG (273-304)
[2019-05-04 07:07] LABS: Band Neutrophils 1 % (0-10); Eosinophils 12 % (0-10); Hypochromasia 1+; Lymphocytes 14 % (20-55); Platelet Estimate Adequate; Segmented Neutrophils 68 % (50-85); Total Cells Counted 100
[2019-05-04] MEDS: SODIUM BICARB INJ 100 MEQ in SODIUM CHLORIDE 0.45% 1,000 ML IV SCH (07:27)
[2019-05-04] MEDS: INSULIN LISPRO 100 UNIT/ML SUBCUT SCH ×2 (07:50→13:59)
[2019-05-04] MEDS: FERROUS SULFATE 325 MG TABLET PO SCH (09:13)
[2019-05-04] MEDS: AMOXICILLIN 500 MG CAPSULE PO SCH (09:13)
[2019-05-04] MEDS: PANTOPRAZOLE 40 MG TABLET PO SCH (09:13)
[2019-05-04 12:29] VITALS: BP 112/80
== END 2019-05-04 14:50 | disposition home or self-care (01) | DRG 988 ==
LOC: EDUNIT# → EDBD → N.ED 15:21 → SUATTDRO 18:10 → N.EDINP 18:10 → N.3E 20:40
PROVIDERS: ADMIT Internal Medicine; ATTEND Internal Medicine

== ENCOUNTER 2019-10-08 17:17 | Inpatient (IN) ==
[2019-10-08] MEDS ORDERED: PIPERACILLIN/TAZOBACTAM 3,375 MG in SODIUM CHLORIDE 0.9% 100 ML IV STA (17:47)
[2019-10-08] MEDS ORDERED: SODIUM CHLORIDE 0.9% 500 ML IV STA (17:47)
[2019-10-08] MEDS ORDERED: MORPHINE 4 MG/1 ML VIAL IV STA (17:47)
[2019-10-08] MEDS ORDERED: ONDANSETRON 4 MG/2 ML VIAL IV STA (17:47)
[2019-10-08 19:19] LABS: Basophils # 0.1 10*3/uL (0.0-0.2); Basophils % 0.3 % (0.0-0.8); Eosinophils # 0.4 10*3/uL (0.0-0.87); Eosinophils % 2.3 % (0.00-10.9); Hematocrit 26.1 VOL% (42.0-52.0); Hemoglobin 8.3 GM/DL (14.0-18.0); Immature Granulocytes % 0.8 %; Immature Granulocytes Absolute 0.14 #; Lymphocytes # 1.2 10*3/uL (1.4-4.0); Lymphocytes % 6.6 % (21.2-54.2); Mean Corpuscular HGB Conc 31.8 GM/DL (32-36); Mean Corpuscular Volume 89.7 FL (87-102); Mean Platelet Volume 9.8 FL (9.6-12.0); Monocytes % 7.1 % (1.7-12.7); Neutrophils % 82.9 % (38.7-73.9); Platelet Count 357 T/CUMM (130-400); Red Blood Count 2.91 MC/CUMM (3.8-5.5); Red Cell Distribution Width 14.1 % (9.3-17.3); White Blood Count 18.5 T/CUMM (4-12)
[2019-10-08 19:34] LABS: Alanine Aminotransferase 11 U/L (16-61); Albumin 2.2 G/DL (3.4-5.0); Alkaline Phosphatase 218 U/L (45-117); Aspartate Amino Transferase 4 U/L (0-37); Bilirubin,Total < 0.39 MG/DL (0.2-1.0); Blood Urea Nitrogen 30 MG/DL (7-18); Estimated Glom Filtration Rate 30 ML/MIN; Glucose 398 MG/DL (74-106); Osmolality,Calculated 288.4 MOS/KG (273-304); Total Protein 7.9 G/DL (6.4-8.3)
[2019-10-08 20:43] LABS: ABG Base Excess -11.4 MMOL/L (-2.5-2.5); ABG HCO3 15.4 MMOL/L (20-26); ABG Oxygen Saturation 97.5 % (95-100); ABG PCO2 38.2 MM HG (35-48); ABG PO2 91.6 MM HG (80-95); ABG TCO2 14.7 MMOL/L (23-27); Allen Test Positive; Pt O2 Delivery Device Room Air
[2019-10-08] MEDS ORDERED: SODIUM CHLORIDE 0.9% 1,000 ML IV STA (20:51)
[2019-10-08] MEDS ORDERED: INSULIN REGULAR 100 UNIT/ML IV STA (21:05)
[2019-10-08 21:50] LABS: Apearance,Urine CLEAR (Clear); Bacteria,Urine Occasional /HPF (Few); Bilirubin,Urine Negative (Negative); Blood, Urine Negative (Negative); Glucose,Urine (UA) >=500 mg/dL (Negative); Ketones,Urine Negative (Negative); Mucus,Urine Occasional /LPF (Occasional); Nitrite,Urine Negative (Negative); Protein,Urine Negative; Squamous Epithelial Cell,Urine Occasional /HPF (0-10); Urine Color Straw (Yellow); Urine Specific Gravity 1.017 (1.001-1.035); Urine Urobilinogen < 2.0 EU/DL (0.2-1.0)
[2019-10-08] MEDS ORDERED: ONDANSETRON 4 MG/2 ML VIAL IV PRN (23:25)
[2019-10-08] MEDS ORDERED: DEXTROSE 50% 25 GM/50 ML VIAL IV PRN (23:25)
[2019-10-08] MEDS ORDERED: GLUCAGON 1 MG VIAL IM PRN (23:25)
[2019-10-08] MEDS ORDERED: VANCOMYCIN INJ 1,000 MG in SODIUM CHLORIDE 0.9% 250 ML IV PRN (23:44)
[2019-10-09] MEDS ORDERED: VANCOMYCIN INJ 1,000 MG in SODIUM CHLORIDE 0.9% 250 ML IV ONE
[2019-10-09] MEDS ORDERED: PNEUMOCOCCAL VACCINE (23 VALENT) 0.5 ML VIAL IM ONE (01:47)
[2019-10-09] MEDS: cefTRIAXone 2,000 MG in SYRINGE 1 EACH IV SCH (02:04)
[2019-10-09] MEDS: SODIUM CHLORIDE 0.9% 1,000 ML IV SCH ×2 (06:07→08:17)
[2019-10-09 06:08] LABS: Basophils # 0.1 10*3/uL (0.0-0.2); Basophils % 0.4 % (0.0-0.8); Eosinophils # 0.6 10*3/uL (0.0-0.87); Eosinophils % 2.4 % (0.00-10.9); Hematocrit 26.5 VOL% (42.0-52.0); Hemoglobin 8.3 GM/DL (14.0-18.0); Immature Granulocytes % 0.7 %; Immature Granulocytes Absolute 0.16 #; Lymphocytes # 1.5 10*3/uL (1.4-4.0); Lymphocytes % 6.6 % (21.2-54.2); Mean Corpuscular HGB Conc 31.3 GM/DL (32-36); Mean Corpuscular Volume 90.1 FL (87-102); Mean Platelet Volume 9.9 FL (9.6-12.0); Monocytes % 7.9 % (1.7-12.7); Platelet Count 334 T/CUMM (130-400); Red Blood Count 2.94 MC/CUMM (3.8-5.5); Red Cell Distribution Width 14.1 % (9.3-17.3); White Blood Count 22.7 T/CUMM (4-12)
[2019-10-09 06:32] LABS: Calcium 8.2 MG/DL (8.5-10.1); Osmolality,Calculated 286.7 MOS/KG (273-304)
[2019-10-09 06:49] LABS: Eosinophils 3 % (0-10); Lymphocytes 6 % (20-55); Platelet Estimate Normal; Segmented Neutrophils 84 % (50-85); Total Cells Counted 100
[2019-10-09 06:50] LABS: Anisocytosis Slight; Macrocytosis Slight
[2019-10-09] MEDS ORDERED: INSULIN REGULAR 100 UNIT/ML SUBCUT SCH (07:30)
[2019-10-09] MEDS: PANTOPRAZOLE 40 MG TABLET PO SCH (08:17)
[2019-10-09] MEDS: CLINDAMYCIN INJ 900 MG in PREMIX 1 EACH IV SCH ×2 (10:24→17:38)
[2019-10-09] MEDS: LACTATED RINGERS 1,000 ML IV SCH ×2 (10:24→17:13)
[2019-10-09] MEDS: INSULIN GLARGINE 100 UNIT/ML SUBCUT SCH ×2 (10:25→21:01)
[2019-10-09] MEDS: ENOXAPARIN 30 MG/0.3 ML SYRINGE SUBCUT SCH (10:25)
[2019-10-09] MEDS: INSULIN REGULAR 100 UNIT/ML SUBCUT SCH ×4 (12:34→21:03)
[2019-10-09 13:08] LABS: Calcium 7.7 MG/DL (8.5-10.1); Osmolality,Calculated 288.4 MOS/KG (273-304)
[2019-10-09] MEDS ORDERED: ACETAMINOPHEN 500 MG TABLET PO PRN (19:53)
[2019-10-09] MEDS: VANCOMYCIN INJ 1,000 MG in SODIUM CHLORIDE 0.9% 250 ML IV SCH (23:42)
[2019-10-10] MEDS: INSULIN REGULAR 100 UNIT/ML SUBCUT SCH ×4 (01:00→17:08)
[2019-10-10] MEDS: cefTRIAXone 2,000 MG in SYRINGE 1 EACH IV SCH (01:09)
[2019-10-10] MEDS: CLINDAMYCIN INJ 900 MG in PREMIX 1 EACH IV SCH ×3 (01:09→17:29)
[2019-10-10 04:54] LABS: Basophils # 0.1 10*3/uL (0.0-0.2); Basophils % 0.3 % (0.0-0.8); Eosinophils # 0.6 10*3/uL (0.0-0.87); Eosinophils % 3.3 % (0.00-10.9); Hematocrit 25.1 VOL% (42.0-52.0); Hemoglobin 7.9 GM/DL (14.0-18.0); Immature Granulocytes % 0.7 %; Immature Granulocytes Absolute 0.12 #; Lymphocytes # 1.7 10*3/uL (1.4-4.0); Mean Corpuscular HGB Conc 31.5 GM/DL (32-36); Mean Corpuscular Volume 91.9 FL (87-102); Mean Platelet Volume 9.9 FL (9.6-12.0); Monocytes % 7.3 % (1.7-12.7); Neutrophils % 79.4 % (38.7-73.9); Platelet Count 324 T/CUMM (130-400); Red Blood Count 2.73 MC/CUMM (3.8-5.5); Red Cell Distribution Width 14.2 % (9.3-17.3); White Blood Count 18.3 T/CUMM (4-12)
[2019-10-10] MEDS: LACTATED RINGERS 1,000 ML IV SCH ×3 (05:26→14:06)
[2019-10-10 05:42] LABS: Calcium 7.9 MG/DL (8.5-10.1); Osmolality,Calculated 277.5 MOS/KG (273-304)
[2019-10-10] MEDS ORDERED: MAGNESIUM SULF RIDER 4 GM in PREMIX 1 EACH IV ONE (09:09)
[2019-10-10] MEDS: ENOXAPARIN 30 MG/0.3 ML SYRINGE SUBCUT SCH (10:23)
[2019-10-10] MEDS: PANTOPRAZOLE 40 MG TABLET PO SCH (10:24)
[2019-10-10] MEDS ORDERED: HYDROmorphone 2 MG/1 ML VIAL IV PRN (10:30)
[2019-10-10] MEDS ORDERED: LORazepam 2 MG/1 ML VIAL IV ONE (10:31)
[2019-10-10] MEDS ORDERED: HYDROmorphone 2 MG/1 ML VIAL IV ONE ×2 (10:38→12:00)
[2019-10-10] MEDS ORDERED: GLUCAGON 1 MG VIAL IM PRN (15:02)
[2019-10-10] MEDS ORDERED: DEXTROSE 50% 25 GM/50 ML VIAL IV PRN (15:02)
[2019-10-10] MEDS: INSULIN GLARGINE 100 UNIT/ML SUBCUT SCH (15:19)
[2019-10-11] MEDS: VANCOMYCIN INJ 1,000 MG in SODIUM CHLORIDE 0.9% 250 ML IV SCH (00:30)
[2019-10-11] MEDS: CLINDAMYCIN INJ 900 MG in PREMIX 1 EACH IV SCH ×3 (01:04→17:43)
[2019-10-11] MEDS: LACTATED RINGERS 1,000 ML IV SCH ×3 (01:05→23:21)
[2019-10-11 05:52] LABS: Basophils # 0.1 10*3/uL (0.0-0.2); Basophils % 0.4 % (0.0-0.8); Eosinophils # 0.8 10*3/uL (0.0-0.87); Eosinophils % 5.3 % (0.00-10.9); Hematocrit 26.3 VOL% (42.0-52.0); Hemoglobin 8.3 GM/DL (14.0-18.0); Immature Granulocytes % 0.8 %; Immature Granulocytes Absolute 0.13 #; Lymphocytes # 1.4 10*3/uL (1.4-4.0); Lymphocytes % 8.9 % (21.2-54.2); Mean Corpuscular HGB Conc 31.6 GM/DL (32-36); Mean Platelet Volume 9.7 FL (9.6-12.0); Monocytes % 7.6 % (1.7-12.7); Platelet Count 316 T/CUMM (130-400); Red Blood Count 2.89 MC/CUMM (3.8-5.5); Red Cell Distribution Width 14.1 % (9.3-17.3); White Blood Count 15.7 T/CUMM (4-12)
[2019-10-11 06:21] LABS: Calcium 7.6 MG/DL (8.5-10.1); Osmolality,Calculated 280.1 MOS/KG (273-304)
[2019-10-11] MEDS: PANTOPRAZOLE 40 MG TABLET PO SCH (08:40)
[2019-10-11] MEDS: INSULIN GLARGINE 100 UNIT/ML SUBCUT SCH (08:40)
[2019-10-11] MEDS: INSULIN REGULAR 100 UNIT/ML SUBCUT SCH ×3 (08:40→17:44)
[2019-10-11] MEDS: ENOXAPARIN 30 MG/0.3 ML SYRINGE SUBCUT SCH (08:48)
[2019-10-11] MEDS: HYDROmorphone 2 MG/1 ML VIAL IV PRN (12:27)
[2019-10-11] MEDS: CHLORHEXIDINE 0.12% ORAL RINSE 60 ML BOTTLE SWISH/SPIT SCH (22:51)
[2019-10-12] MEDS: VANCOMYCIN INJ 1,000 MG in SODIUM CHLORIDE 0.9% 250 ML IV SCH (01:21)
[2019-10-12] MEDS: CLINDAMYCIN INJ 900 MG in PREMIX 1 EACH IV SCH ×2 (01:21→09:16)
[2019-10-12 05:19] LABS: Basophils % 0.3 % (0.0-0.8); Eosinophils # 0.8 10*3/uL (0.0-0.87); Eosinophils % 5.8 % (0.00-10.9); Hematocrit 22.2 VOL% (42.0-52.0); Immature Granulocytes % 0.6 %; Immature Granulocytes Absolute 0.09 #; Lymphocytes # 1.4 10*3/uL (1.4-4.0); Lymphocytes % 10.1 % (21.2-54.2); Mean Corpuscular HGB Conc 31.5 GM/DL (32-36); Mean Corpuscular Volume 90.6 FL (87-102); Mean Platelet Volume 9.8 FL (9.6-12.0); Monocytes % 6.3 % (1.7-12.7); Neutrophils % 76.9 % (38.7-73.9); Platelet Count 287 T/CUMM (130-400); Red Blood Count 2.45 MC/CUMM (3.8-5.5); Red Cell Distribution Width 13.9 % (9.3-17.3); White Blood Count 13.9 T/CUMM (4-12)
[2019-10-12 05:56] LABS: Calcium 7.5 MG/DL (8.5-10.1); Osmolality,Calculated 277.7 MOS/KG (273-304)
[2019-10-12] MEDS ORDERED: SODIUM CHLORIDE 0.9% 1,000 ML IV PRN (07:03)
[2019-10-12 07:39] LABS: % Iron Saturation 31.9 % (18-50); Ferritin 441.4 ng/ml (26-388)
[2019-10-12 07:46] LABS: Basophils % 0.2 % (0.0-0.8); Eosinophils # 0.8 10*3/uL (0.0-0.87); Eosinophils % 5.2 % (0.00-10.9); Hematocrit 27.3 VOL% (42.0-52.0); Hemoglobin 8.6 GM/DL (14.0-18.0); Immature Granulocytes % 0.7 %; Immature Granulocytes Absolute 0.11 #; Lymphocytes # 1.2 10*3/uL (1.4-4.0); Lymphocytes % 7.6 % (21.2-54.2); Mean Corpuscular HGB Conc 31.5 GM/DL (32-36); Mean Corpuscular Volume 91.9 FL (87-102); Mean Platelet Volume 9.3 FL (9.6-12.0); Monocytes % 5.8 % (1.7-12.7); Neutrophils % 80.5 % (38.7-73.9); Platelet Count 363 T/CUMM (130-400); Red Blood Count 2.97 MC/CUMM (3.8-5.5); Red Cell Distribution Width 14.2 % (9.3-17.3)
[2019-10-12 07:54] LABS: Folate 3.6 NG/ML (5.4-24.0); Vitamin B12 706 PG/ML (211-911)
[2019-10-12] MEDS: INSULIN REGULAR 100 UNIT/ML SUBCUT SCH ×3 (07:56→17:09)
[2019-10-12 08:52] LABS: Sedimentation Rate-Westergren 118 MM/HR (0-15)
[2019-10-12] MEDS: ENOXAPARIN 30 MG/0.3 ML SYRINGE SUBCUT SCH (09:16)
[2019-10-12] MEDS: INSULIN GLARGINE 100 UNIT/ML SUBCUT SCH (09:16)
[2019-10-12] MEDS: CHLORHEXIDINE 0.12% ORAL RINSE 60 ML BOTTLE SWISH/SPIT SCH ×2 (09:16→21:32)
[2019-10-12] MEDS: PANTOPRAZOLE 40 MG TABLET PO SCH (09:16)
[2019-10-12] MEDS: ceFAZolin 1,000 MG in SYRINGE 1 EACH IV SCH ×2 (10:03→17:10)
[2019-10-12] MEDS: LACTATED RINGERS 1,000 ML IV SCH ×2 (10:04→16:58)
[2019-10-12] MEDS: HYDROmorphone 2 MG/1 ML VIAL IV PRN (10:49)
[2019-10-12 12:13] LABS: Hemoglobin A1 (Alkaline) 97.3 % (96.5-98.5); Hemoglobin A2 (Alkaline) 2.7 % (1.5-3.5)
[2019-10-13] MEDS: ceFAZolin 1,000 MG in SYRINGE 1 EACH IV SCH ×3 (02:25→18:57)
[2019-10-13] MEDS: LACTATED RINGERS 1,000 ML IV SCH ×3 (02:59→21:37)
[2019-10-13 05:54] LABS: Basophils % 0.3 % (0.0-0.8); Eosinophils # 0.7 10*3/uL (0.0-0.87); Eosinophils % 5.8 % (0.00-10.9); Hematocrit 27.4 VOL% (42.0-52.0); Hemoglobin 8.5 GM/DL (14.0-18.0); Immature Granulocytes % 0.6 %; Immature Granulocytes Absolute 0.08 #; Lymphocytes # 1.4 10*3/uL (1.4-4.0); Lymphocytes % 10.8 % (21.2-54.2); Mean Corpuscular Volume 92.9 FL (87-102); Mean Platelet Volume 9.5 FL (9.6-12.0); Monocytes % 6.3 % (1.7-12.7); Neutrophils % 76.2 % (38.7-73.9); Platelet Count 356 T/CUMM (130-400); Red Blood Count 2.95 MC/CUMM (3.8-5.5); Red Cell Distribution Width 14.3 % (9.3-17.3); White Blood Count 12.5 T/CUMM (4-12)
[2019-10-13 06:04] LABS: Calcium 7.7 MG/DL (8.5-10.1); Osmolality,Calculated 277.7 MOS/KG (273-304)
[2019-10-13] MEDS: INSULIN REGULAR 100 UNIT/ML SUBCUT SCH ×3 (09:27→16:40)
[2019-10-13] MEDS: PANTOPRAZOLE 40 MG TABLET PO SCH (09:28)
[2019-10-13] MEDS: INSULIN GLARGINE 100 UNIT/ML SUBCUT SCH (09:28)
[2019-10-13] MEDS: HYDROmorphone 2 MG/1 ML VIAL IV PRN ×3 (09:28→21:37)
[2019-10-13] MEDS: CHLORHEXIDINE 0.12% ORAL RINSE 60 ML BOTTLE SWISH/SPIT SCH ×2 (09:28→21:37)
[2019-10-13] MEDS: ENOXAPARIN 30 MG/0.3 ML SYRINGE SUBCUT SCH (09:28)
[2019-10-14] MEDS: ceFAZolin 1,000 MG in SYRINGE 1 EACH IV SCH ×2 (02:59→10:13)
[2019-10-14 07:29] LABS: Basophils % 0.3 % (0.0-0.8); Eosinophils # 0.7 10*3/uL (0.0-0.87); Eosinophils % 5.6 % (0.00-10.9); Hematocrit 26.1 VOL% (42.0-52.0); Hemoglobin 8.2 GM/DL (14.0-18.0); Immature Granulocytes % 0.7 %; Immature Granulocytes Absolute 0.08 #; Lymphocytes # 1.2 10*3/uL (1.4-4.0); Lymphocytes % 10.4 % (21.2-54.2); Mean Corpuscular HGB Conc 31.4 GM/DL (32-36); Mean Corpuscular Volume 90.3 FL (87-102); Mean Platelet Volume 9.7 FL (9.6-12.0); Monocytes % 7.7 % (1.7-12.7); Neutrophils % 75.3 % (38.7-73.9); Platelet Count 361 T/CUMM (130-400); Red Blood Count 2.89 MC/CUMM (3.8-5.5); Red Cell Distribution Width 14.2 % (9.3-17.3); White Blood Count 11.9 T/CUMM (4-12)
[2019-10-14 07:56] LABS: Calcium 7.9 MG/DL (8.5-10.1)
[2019-10-14] MEDS: INSULIN REGULAR 100 UNIT/ML SUBCUT SCH ×3 (08:33→16:39)
[2019-10-14] MEDS: LACTATED RINGERS 1,000 ML IV SCH ×2 (08:33→16:40)
[2019-10-14] MEDS: INSULIN GLARGINE 100 UNIT/ML SUBCUT SCH (08:34)
[2019-10-14] MEDS: PANTOPRAZOLE 40 MG TABLET PO SCH (10:12)
[2019-10-14] MEDS: CHLORHEXIDINE 0.12% ORAL RINSE 60 ML BOTTLE SWISH/SPIT SCH (10:13)
[2019-10-14] MEDS: ENOXAPARIN 30 MG/0.3 ML SYRINGE SUBCUT SCH (10:13)
[2019-10-14 12:08] VITALS: BP 108/77
== END 2019-10-14 16:45 | disposition home or self-care (01) | DRG 872 ==
LOC: EDBD → EDUNIT# → N.ED 17:17 → N.EDINP 23:25 → SUATTDRO 23:25 → N.3E 10-09 01:12
PROVIDERS: ADMIT Family Medicine; ATTEND Emergency Medicine

== ENCOUNTER 2019-10-28 00:09 | Inpatient (IN) ==
[2019-10-28] MEDS ORDERED: PIPERACILLIN/TAZOBACTAM 3,375 MG in SODIUM CHLORIDE 0.9% 100 ML IV STA (00:36)
[2019-10-28] MEDS ORDERED: VANCOMYCIN INJ 1,000 MG in SODIUM CHLORIDE 0.9% 250 ML IV STA ×2 (00:36→00:41)
[2019-10-28] MEDS ORDERED: SODIUM CHLORIDE 0.9% 2,000 ML IV STA (00:36)
[2019-10-28 00:37] LABS: Basophils % 0.2 % (0.0-0.8); Eosinophils # 0.1 10*3/uL (0.0-0.87); Eosinophils % 1.3 % (0.00-10.9); Hematocrit 23.8 VOL% (42.0-52.0); Hemoglobin 7.1 GM/DL (14.0-18.0); Immature Granulocytes % 0.5 %; Immature Granulocytes Absolute 0.04 #; Lymphocytes # 0.9 10*3/uL (1.4-4.0); Lymphocytes % 9.7 % (21.2-54.2); Mean Corpuscular HGB Conc 29.8 GM/DL (32-36); Mean Corpuscular Volume 96.7 FL (87-102); Mean Platelet Volume 9.8 FL (9.6-12.0); Monocytes % 7.8 % (1.7-12.7); NRBC # 0.08 10*3/uL; Neutrophils % 80.5 % (38.7-73.9); Platelet Count 239 T/CUMM (130-400); Red Blood Count 2.46 MC/CUMM (3.8-5.5); Red Cell Distribution Width 14.6 % (9.3-17.3); White Blood Count 8.8 T/CUMM (4-12)
[2019-10-28 00:50] LABS: Alanine Aminotransferase 136 U/L (16-61); Alkaline Phosphatase 282 U/L (45-117); Aspartate Amino Transferase 267 U/L (0-37); Bilirubin,Total < 0.39 MG/DL (0.2-1.0); Blood Urea Nitrogen 65 MG/DL (7-18); Calcium 6.5 MG/DL (8.5-10.1); Estimated Glom Filtration Rate 5 ML/MIN; Glucose 163 MG/DL (74-106); Osmolality,Calculated 297.7 MOS/KG (273-304); Total Protein 6.6 G/DL (6.4-8.3)
[2019-10-28 00:54] LABS: PT Patient Result 11.1 SECS (9.8-11.9)
[2019-10-28 01:22] LABS: Ferritin 644.5 ng/ml (26-388); Troponin I < 0.015 NG/ML (0.00-0.045)
[2019-10-28 01:42] LABS: WBC,Urine 46633 /HPF (0-6)
[2019-10-28 01:44] LABS: Urine Color Yellow (Yellow)
[2019-10-28 01:45] LABS: Apearance,Urine Turbid (Clear); Glucose,Urine (UA) Negative (Negative); Ketones,Urine Negative (Negative); Nitrite,Urine Negative (Negative); Protein,Urine >=500 MG/DL; Urine Specific Gravity 1.015 (1.001-1.035)
[2019-10-28 01:48] LABS: Bilirubin,Urine Negative (Negative); Blood, Urine Trace mg/dL (Negative); RBC,Urine <1 /HPF (0-4); Urine Urobilinogen < 2.0 EU/DL (0.2-1.0)
[2019-10-28] MEDS ORDERED: GLUCAGON 1 MG VIAL IM PRN (01:48)
[2019-10-28] MEDS ORDERED: DEXTROSE 10% 250 ML BAG IV PRN ×3 (01:48→15:08)
[2019-10-28] MEDS ORDERED: PROMETHAZINE 25 MG/1 ML VIAL IM PRN (01:48)
[2019-10-28] MEDS ORDERED: ALBUTEROL 2.5 MG/3 ML NEB RESP TX PRN (01:48)
[2019-10-28 01:49] LABS: Mucus,Urine Moderate /LPF (Occasional)
[2019-10-28] MEDS ORDERED: NOREPINEPHRINE 4 MG/4 ML VIAL IV ONE ×2 (01:49→01:50)
[2019-10-28] MEDS ORDERED: ENOXAPARIN 30 MG/0.3 ML SYRINGE SUBCUT SCH (02:00)
[2019-10-28] MEDS ORDERED: SODIUM CHLORIDE 0.9% 1,000 ML IV SCH ×2 (02:00→13:25)
[2019-10-28] MEDS: NOREPINEPHRINE 8 MG in SODIUM CHLORIDE 0.9% 242 ML IV SCH (02:13)
[2019-10-28] MEDS: DEXTROSE 5% NACL 0.45% 1,000 ML IV SCH ×2 (02:34→06:32)
[2019-10-28] MEDS: PANTOPRAZOLE 40 MG VIAL IV SCH ×2 (02:50→10:03)
[2019-10-28] MEDS: LINEZOLID INJ 600 MG in PREMIX 1 EACH IV SCH ×2 (02:53→15:33)
[2019-10-28] MEDS: INSULIN REGULAR 100 UNIT/ML SUBCUT SCH ×5 (02:53→17:45)
[2019-10-28 03:52] LABS: Band Neutrophils 5 % (0-10); Eosinophils 2 % (0-10); Lymphocytes 8 % (20-55); Nucleated Red Blood Cells 1 (0-5); Segmented Neutrophils 81 % (50-85); Total Cells Counted 100
[2019-10-28 03:53] LABS: Platelet Estimate Normal
[2019-10-28] MEDS ORDERED: INSULIN REGULAR 100 UNIT/ML SUBCUT SCH (06:00)
[2019-10-28 07:16] LABS: Basophils # 0.1 10*3/uL (0.0-0.2); Basophils % 0.2 % (0.0-0.8); Eosinophils % 0.1 % (0.00-10.9); Hematocrit 29.6 VOL% (42.0-52.0); Hemoglobin 8.9 GM/DL (14.0-18.0); Immature Granulocytes Absolute 0.73 #; Lymphocytes # 0.8 10*3/uL (1.4-4.0); Lymphocytes % 3.4 % (21.2-54.2); Mean Corpuscular HGB Conc 30.1 GM/DL (32-36); Mean Corpuscular Volume 95.2 FL (87-102); Mean Platelet Volume 9.7 FL (9.6-12.0); Monocytes % 8.1 % (1.7-12.7); NRBC # 0.31 10*3/uL; Neutrophils % 85.2 % (38.7-73.9); Platelet Count 289 T/CUMM (130-400); Red Blood Count 3.11 MC/CUMM (3.8-5.5); Red Cell Distribution Width 14.6 % (9.3-17.3)
[2019-10-28 07:29] LABS: Calcium 6.7 MG/DL (8.5-10.1); Osmolality,Calculated 296.1 MOS/KG (273-304)
[2019-10-28 07:49] LABS: Lymphocytes 2 % (20-55); Nucleated Red Blood Cells 1 (0-5); Segmented Neutrophils 91 % (50-85); Total Cells Counted 100
[2019-10-28 07:50] LABS: Hypochromasia 1+; Platelet Estimate Adequate
[2019-10-28] MEDS ORDERED: SODIUM CHLORIDE 0.9% 1,000 ML IV ONE (08:25)
[2019-10-28] MEDS ORDERED: INSULIN REGULAR 100 UNIT/ML IV ONE (08:25)
[2019-10-28] MEDS ORDERED: SODIUM PHOSPHATE IV PRN (08:25)
[2019-10-28] MEDS ORDERED: SODIUM CHLORIDE 0.9% IV PRN (08:25)
[2019-10-28] MEDS ORDERED: SODIUM BICARB INJ 100 MEQ in STERILE WATER INJ 400 ML IV PRN (08:25)
[2019-10-28] MEDS ORDERED: MAGNESIUM SULF RIDER 4 GM in PREMIX 1 EACH IV PRN (08:25)
[2019-10-28] MEDS ORDERED: DEXTROSE 50% 25 GM/50 ML VIAL IV PRN (08:25)
[2019-10-28] MEDS ORDERED: INSULIN REGULAR DRIP 100 ML IV SCH (08:30)
[2019-10-28] MEDS ORDERED: LIDOCAINE 2% 5 ML VIAL ONE (09:00)
[2019-10-28] MEDS ORDERED: PROMETHAZINE 25 MG/1 ML VIAL ONE (09:00)
[2019-10-28] MEDS ORDERED: ETOMIDATE 20 MG/10 ML VIAL IV ONE (09:00)
[2019-10-28 09:40] LABS: ABG Base Excess -25.9 MMOL/L (-2.5-2.5); ABG HCO3 6.1 MMOL/L (20-26); ABG Oxygen Saturation 98.4 % (95-100); ABG PCO2 21.2 MM HG (35-48); ABG TCO2 4.7 MMOL/L (23-27); Allen Test Positive; Pt O2 Delivery Device Room Air
[2019-10-28] MEDS: SODIUM CHLORIDE 0.9% 1,000 ML IV SCH ×2 (09:41→14:47)
[2019-10-28 09:56] LABS: Calcium 6.7 MG/DL (8.5-10.1)
[2019-10-28] MEDS: DEXTROSE 5% NACL 0.9% 1,000 ML IV SCH ×3 (10:00→14:50)
[2019-10-28] MEDS ORDERED: INSULIN REGULAR 100 UNIT/ML IV PRN (11:17)
[2019-10-28] MEDS: PIPERACILLIN/TAZOBACTAM 3,375 MG in SODIUM CHLORIDE 0.9% 100 ML IV SCH (12:12)
[2019-10-28 12:57] LABS: ABG Base Excess -25.9 MMOL/L (-2.5-2.5); ABG Oxygen Saturation 98.5 % (95-100); ABG TCO2 4.6 MMOL/L (23-27); Allen Test Positive; Pt O2 Delivery Device Room Air
[2019-10-28 13:02] LABS: ABG PCO2 20.7 MM HG (35-48); ABG PH 6.951 (7.35-7.45)
[2019-10-28 13:13] LABS: Calcium 6.4 MG/DL (8.5-10.1); Osmolality,Calculated 297.5 MOS/KG (273-304)
[2019-10-28] MEDS ORDERED: SODIUM BICARBONATE 50 MEQ/50 ML VIAL IV ONE (13:30)
[2019-10-28] MEDS: DESITIN 4OZ/NYSTATIN 15 GRAM MIXTURE PASTE TOP SCH ×2 (16:10→20:28)
[2019-10-28] MEDS: SODIUM BICARB INJ 150 MEQ in STERILE WATER INJ 850 ML IV SCH (16:10)
[2019-10-28 16:59] LABS: Calcium 6.3 MG/DL (8.5-10.1); Osmolality,Calculated 292.4 MOS/KG (273-304)
[2019-10-28 19:35] LABS: Apearance,Urine CLOUDY (Clear); Bilirubin,Urine Negative (Negative); Blood, Urine Moderate mg/dL (Negative); Glucose,Urine (UA) 50 mg/dL (Negative); Ketones,Urine 5 mg/dL (Negative); Nitrite,Urine Negative (Negative); Protein,Urine 100 MG/DL; Urine Color Red (Yellow); Urine Specific Gravity 1.011 (1.001-1.035); Urine Urobilinogen < 2.0 EU/DL (0.2-1.0)
[2019-10-28 19:36] LABS: RBC,Urine 9150 /HPF (0-4); WBC,Urine 590 /HPF (0-6)
[2019-10-28 20:52] LABS: Calcium 6.3 MG/DL (8.5-10.1); Osmolality,Calculated 289.7 MOS/KG (273-304)
[2019-10-29] MEDS: INSULIN REGULAR 100 UNIT/ML SUBCUT SCH ×4 (00:42→18:34)
[2019-10-29 01:15] LABS: Osmolality,Calculated 292.5 MOS/KG (273-304)
[2019-10-29] MEDS ORDERED: SODIUM CHLORIDE 0.45% 1,000 ML IV SCH (01:25)
[2019-10-29] MEDS: PIPERACILLIN/TAZOBACTAM 3,375 MG in SODIUM CHLORIDE 0.9% 100 ML IV SCH (01:37)
[2019-10-29] MEDS: POTASSIUM CHLORIDE RIDER 20 MEQ in PREMIX 1 EACH IV PRN ×2 (01:37→03:45)
[2019-10-29] MEDS: SODIUM BICARB INJ 150 MEQ in STERILE WATER INJ 850 ML IV SCH ×3 (02:15→23:04)
[2019-10-29 03:16] LABS: Basophils # 0.1 10*3/uL (0.0-0.2); Basophils % 0.5 % (0.0-0.8); Eosinophils # 0.4 10*3/uL (0.0-0.87); Eosinophils % 2.9 % (0.00-10.9); Hematocrit 22.7 VOL% (42.0-52.0); Hemoglobin 7.3 GM/DL (14.0-18.0); Immature Granulocytes % 1.7 %; Immature Granulocytes Absolute 0.22 #; Lymphocytes # 1.2 10*3/uL (1.4-4.0); Lymphocytes % 9.4 % (21.2-54.2); Mean Corpuscular HGB Conc 32.2 GM/DL (32-36); Mean Corpuscular Volume 89.4 FL (87-102); Mean Platelet Volume 9.9 FL (9.6-12.0); Monocytes % 8.6 % (1.7-12.7); NRBC # 0.07 10*3/uL; Neutrophils % 76.9 % (38.7-73.9); Platelet Count 257 T/CUMM (130-400); Red Blood Count 2.54 MC/CUMM (3.8-5.5); Red Cell Distribution Width 14.5 % (9.3-17.3)
[2019-10-29 03:30] LABS: Calcium 6.1 MG/DL (8.5-10.1); Osmolality,Calculated 291.5 MOS/KG (273-304)
[2019-10-29] MEDS: LINEZOLID INJ 600 MG in PREMIX 1 EACH IV SCH ×2 (03:59→14:09)
[2019-10-29] MEDS: PANTOPRAZOLE 40 MG VIAL IV SCH (08:04)
[2019-10-29] MEDS: DESITIN 4OZ/NYSTATIN 15 GRAM MIXTURE PASTE TOP SCH ×2 (08:05→21:44)
[2019-10-29] MEDS: NOREPINEPHRINE 8 MG in SODIUM CHLORIDE 0.9% 242 ML IV SCH (09:23)
[2019-10-29] MEDS: cefTRIAXone 1,000 MG in SYRINGE 1 EACH IV SCH (09:40)
[2019-10-29 12:13] LABS: Hepatitis B Core IgM Quant 0.17 Index; Hepatitis B Surface Ag Quant < 0.10 Index; Hepatitis B Surface Ag Result Negative (Negative); Hepatitis C Virus Ab Quant 0.17 Index; Hepatitis C Virus Ab Result Negative (Negative)
[2019-10-29] MEDS ORDERED: SODIUM BICARBONATE 50 MEQ/50 ML VIAL IV ONE ×2 (15:14→22:50)
[2019-10-30] MEDS: INSULIN REGULAR 100 UNIT/ML SUBCUT SCH ×4 (00:25→19:22)
[2019-10-30] MEDS: LINEZOLID INJ 600 MG in PREMIX 1 EACH IV SCH ×2 (01:59→15:57)
[2019-10-30] MEDS: NOREPINEPHRINE 8 MG in SODIUM CHLORIDE 0.9% 242 ML IV SCH (02:00)
[2019-10-30 04:15] LABS: Basophils % 0.4 % (0.0-0.8); Eosinophils # 0.4 10*3/uL (0.0-0.87); Eosinophils % 4.2 % (0.00-10.9); Hematocrit 18.2 VOL% (42.0-52.0); Immature Granulocytes % 0.5 %; Immature Granulocytes Absolute 0.05 #; Lymphocytes # 1.2 10*3/uL (1.4-4.0); Mean Corpuscular HGB Conc 32.4 GM/DL (32-36); Mean Corpuscular Volume 89.7 FL (87-102); Mean Platelet Volume 9.7 FL (9.6-12.0); Monocytes % 9.9 % (1.7-12.7); NRBC # 0.08 10*3/uL; Platelet Count 230 T/CUMM (130-400); Red Blood Count 2.03 MC/CUMM (3.8-5.5); White Blood Count 9.2 T/CUMM (4-12)
[2019-10-30 04:16] LABS: Hemoglobin 5.9 GM/DL (14.0-18.0)
[2019-10-30 04:31] LABS: Osmolality,Calculated 287.7 MOS/KG (273-304)
[2019-10-30] MEDS ORDERED: SODIUM CHLORIDE 0.9% 1,000 ML IV PRN ×3 (04:34→13:10)
[2019-10-30 04:35] LABS: Calcium 5.6 MG/DL (8.5-10.1)
[2019-10-30] MEDS: MAGNESIUM SULF RIDER 2 GM in PREMIX 1 EACH IV PRN ×2 (04:59→07:40)
[2019-10-30] MEDS: POTASSIUM CHLORIDE RIDER 20 MEQ in PREMIX 1 EACH IV PRN ×2 (05:01→07:39)
[2019-10-30] MEDS: PANTOPRAZOLE 40 MG VIAL IV SCH ×2 (10:05→21:32)
[2019-10-30] MEDS: cefTRIAXone 1,000 MG in SYRINGE 1 EACH IV SCH (10:06)
[2019-10-30] MEDS: DESITIN 4OZ/NYSTATIN 15 GRAM MIXTURE PASTE TOP SCH ×2 (10:07→21:40)
[2019-10-30] MEDS: SODIUM BICARB INJ 150 MEQ in STERILE WATER INJ 850 ML IV SCH (10:08)
[2019-10-30] MEDS: POTASSIUM CHLORIDE RIDER 10 MEQ in PREMIX 1 EACH IV PRN (10:19)
[2019-10-30] MEDS: CALCIUM CARBONATE CHEW 500 MG TABLET PO SCH ×2 (16:34→21:32)
[2019-10-30] MEDS: SODIUM CHLORIDE 0.45% 1,000 ML IV SCH ×2 (17:37→23:40)
[2019-10-31] MEDS: INSULIN REGULAR 100 UNIT/ML SUBCUT SCH ×4 (02:54→17:29)
[2019-10-31] MEDS: LINEZOLID INJ 600 MG in PREMIX 1 EACH IV SCH ×2 (02:56→13:47)
[2019-10-31 03:47] LABS: Basophils # 0.1 10*3/uL (0.0-0.2); Basophils % 0.4 % (0.0-0.8); Eosinophils # 0.4 10*3/uL (0.0-0.87); Eosinophils % 2.9 % (0.00-10.9); Hematocrit 28.3 VOL% (42.0-52.0); Hemoglobin 9.4 GM/DL (14.0-18.0); Immature Granulocytes % 0.4 %; Immature Granulocytes Absolute 0.05 #; Lymphocytes # 1.1 10*3/uL (1.4-4.0); Lymphocytes % 8.3 % (21.2-54.2); Mean Corpuscular HGB Conc 33.2 GM/DL (32-36); Mean Corpuscular Volume 87.9 FL (87-102); Mean Platelet Volume 10.2 FL (9.6-12.0); Monocytes % 7.9 % (1.7-12.7); NRBC # 0.07 10*3/uL; Neutrophils % 80.1 % (38.7-73.9); Platelet Count 268 T/CUMM (130-400); Red Blood Count 3.22 MC/CUMM (3.8-5.5); Red Cell Distribution Width 14.7 % (9.3-17.3); White Blood Count 12.8 T/CUMM (4-12)
[2019-10-31 04:16] LABS: Osmolality,Calculated 294.1 MOS/KG (273-304)
[2019-10-31 04:19] LABS: Calcium 5.5 MG/DL (8.5-10.1)
[2019-10-31] MEDS: NOREPINEPHRINE 8 MG in SODIUM CHLORIDE 0.9% 242 ML IV SCH (04:31)
[2019-10-31] MEDS: POTASSIUM CHLORIDE RIDER 10 MEQ in PREMIX 1 EACH IV PRN ×4 (05:00→11:44)
[2019-10-31] MEDS: CALCIUM GLUCONATE 2,000 MG in SODIUM CHLORIDE 0.9% 100 ML IV PRN ×2 (05:42→10:26)
[2019-10-31] MEDS: SODIUM CHLORIDE 0.45% 1,000 ML IV SCH ×2 (05:51→16:18)
[2019-10-31] MEDS ORDERED: CALCIUM GLUCONATE 2,000 MG in SODIUM CHLORIDE 0.9% 100 ML IV ONE (10:24)
[2019-10-31] MEDS ORDERED: FLUCONAZOLE INJ 100 MG in IV BAG 1 EACH IV ONE (10:24)
[2019-10-31] MEDS: CALCIUM CARBONATE CHEW 500 MG TABLET PO SCH ×3 (10:24→21:21)
[2019-10-31] MEDS: PANTOPRAZOLE 40 MG VIAL IV SCH ×2 (10:25→21:22)
[2019-10-31] MEDS: DESITIN 4OZ/NYSTATIN 15 GRAM MIXTURE PASTE TOP SCH ×2 (10:25→21:20)
[2019-10-31] MEDS: cefTRIAXone 1,000 MG in SYRINGE 1 EACH IV SCH (10:25)
[2019-11-01] MEDS: INSULIN REGULAR 100 UNIT/ML SUBCUT SCH ×5 (01:10→23:28)
[2019-11-01] MEDS: LINEZOLID INJ 600 MG in PREMIX 1 EACH IV SCH ×2 (01:32→14:40)
[2019-11-01] MEDS: CALCIUM CARBONATE CHEW 500 MG TABLET PO SCH ×4 (01:33→21:29)
[2019-11-01] MEDS: SODIUM CHLORIDE 0.45% 1,000 ML IV SCH ×3 (02:24→15:05)
[2019-11-01] MEDS: NOREPINEPHRINE 8 MG in SODIUM CHLORIDE 0.9% 242 ML IV SCH (02:27)
[2019-11-01 05:54] LABS: Basophils % 0.4 % (0.0-0.8); Eosinophils # 0.4 10*3/uL (0.0-0.87); Eosinophils % 4.8 % (0.00-10.9); Hemoglobin 8.6 GM/DL (14.0-18.0); Immature Granulocytes % 0.6 %; Immature Granulocytes Absolute 0.05 #; Lymphocytes # 1.7 10*3/uL (1.4-4.0); Lymphocytes % 20.2 % (21.2-54.2); Mean Corpuscular HGB Conc 33.1 GM/DL (32-36); Monocytes % 9.3 % (1.7-12.7); NRBC # 0.07 10*3/uL; Neutrophils % 64.7 % (38.7-73.9); Platelet Count 246 T/CUMM (130-400); Red Blood Count 2.92 MC/CUMM (3.8-5.5); Red Cell Distribution Width 14.9 % (9.3-17.3); White Blood Count 8.6 T/CUMM (4-12)
[2019-11-01 06:10] LABS: Calcium 6.4 MG/DL (8.5-10.1); Osmolality,Calculated 282.2 MOS/KG (273-304)
[2019-11-01] MEDS: PANTOPRAZOLE 40 MG VIAL IV SCH ×2 (10:56→21:30)
[2019-11-01] MEDS: cefTRIAXone 1,000 MG in SYRINGE 1 EACH IV SCH (10:59)
[2019-11-01] MEDS: CALCIUM GLUCONATE 2,000 MG in SODIUM CHLORIDE 0.9% 100 ML IV PRN (11:05)
[2019-11-01] MEDS: DESITIN 4OZ/NYSTATIN 15 GRAM MIXTURE PASTE TOP SCH ×2 (11:11→21:30)
[2019-11-01] MEDS ORDERED: BISACODYL 5 MG TABLET PO ONE (12:00)
[2019-11-01] MEDS: SODIUM BICARB IV SCH (17:11)
[2019-11-01] MEDS: POTASSIUM CHLORIDE IV SCH (17:11)
[2019-11-01] MEDS: [UNRECOGNIZED DRUG - OTHER] IV SCH (17:11)
[2019-11-01] MEDS ORDERED: POLYETHYLENE GLYCOL POWDER 255 GM BOTTLE PO ONE (18:00)
[2019-11-02] MEDS: NOREPINEPHRINE 8 MG in SODIUM CHLORIDE 0.9% 242 ML IV SCH (01:06)
[2019-11-02] MEDS: LINEZOLID INJ 600 MG in PREMIX 1 EACH IV SCH ×2 (01:36→13:51)
[2019-11-02] MEDS: POTASSIUM CHLORIDE IV SCH ×3 (03:55→23:58)
[2019-11-02] MEDS: SODIUM BICARB IV SCH ×3 (03:55→23:58)
[2019-11-02] MEDS: [UNRECOGNIZED DRUG - OTHER] IV SCH ×3 (03:55→23:58)
[2019-11-02] MEDS: INSULIN REGULAR 100 UNIT/ML SUBCUT SCH ×4 (06:01→23:58)
[2019-11-02 08:40] LABS: Calcium 6.4 MG/DL (8.5-10.1); Osmolality,Calculated 278.8 MOS/KG (273-304)
[2019-11-02 08:43] LABS: Hematocrit 26.2 VOL% (42.0-52.0); Hemoglobin 8.6 GM/DL (14.0-18.0)
[2019-11-02] MEDS: PANTOPRAZOLE 40 MG VIAL IV SCH ×2 (09:11→21:48)
[2019-11-02] MEDS: ONDANSETRON 4 MG/2 ML VIAL IV PRN (09:15)
[2019-11-02] MEDS: cefTRIAXone 1,000 MG in SYRINGE 1 EACH IV SCH (09:17)
[2019-11-02] MEDS: CALCIUM CARBONATE CHEW 500 MG TABLET PO SCH ×3 (09:25→21:47)
[2019-11-02] MEDS: DESITIN 4OZ/NYSTATIN 15 GRAM MIXTURE PASTE TOP SCH ×2 (09:25→21:48)
[2019-11-02] MEDS ORDERED: POLYETHYLENE GLYCOL POWDER 255 GM BOTTLE PO ONE (09:48)
[2019-11-02] MEDS: POTASSIUM CHLORIDE RIDER 20 MEQ in PREMIX 1 EACH IV PRN (11:04)
[2019-11-02] MEDS: CALCIUM GLUCONATE 2,000 MG in SODIUM CHLORIDE 0.9% 100 ML IV PRN (11:05)
[2019-11-03] MEDS: LINEZOLID INJ 600 MG in PREMIX 1 EACH IV SCH ×2 (02:51→15:38)
[2019-11-03] MEDS: NOREPINEPHRINE 8 MG in SODIUM CHLORIDE 0.9% 242 ML IV SCH (02:58)
[2019-11-03 05:40] LABS: Basophils % 0.2 % (0.0-0.8); Eosinophils # 0.5 10*3/uL (0.0-0.87); Hematocrit 27.3 VOL% (42.0-52.0); Hemoglobin 8.7 GM/DL (14.0-18.0); Immature Granulocytes % 0.6 %; Immature Granulocytes Absolute 0.05 #; Lymphocytes # 1.2 10*3/uL (1.4-4.0); Lymphocytes % 14.7 % (21.2-54.2); Mean Corpuscular HGB Conc 31.9 GM/DL (32-36); Mean Platelet Volume 9.6 FL (9.6-12.0); NRBC # 0.02 10*3/uL; Neutrophils % 72.5 % (38.7-73.9); Platelet Count 245 T/CUMM (130-400); Red Cell Distribution Width 14.9 % (9.3-17.3); White Blood Count 8.5 T/CUMM (4-12)
[2019-11-03 05:55] LABS: Calcium 6.5 MG/DL (8.5-10.1)
[2019-11-03 05:56] LABS: Osmolality,Calculated 279.7 MOS/KG (273-304)
[2019-11-03] MEDS: INSULIN REGULAR 100 UNIT/ML SUBCUT SCH ×4 (06:08→23:55)
[2019-11-03] MEDS ORDERED: propofoL 200 MG/20 ML VIAL IV ONE (09:00)
[2019-11-03] MEDS ORDERED: LIDOCAINE 2% 5 ML VIAL ONE (09:00)
[2019-11-03] MEDS: LACTATED RINGERS 1,000 ML IV SCH (10:36)
[2019-11-03] MEDS: PANTOPRAZOLE 40 MG VIAL IV SCH ×2 (11:25→20:33)
[2019-11-03] MEDS: CALCIUM CARBONATE CHEW 500 MG TABLET PO SCH ×3 (11:27→20:36)
[2019-11-03] MEDS: DESITIN 4OZ/NYSTATIN 15 GRAM MIXTURE PASTE TOP SCH ×2 (11:27→20:36)
[2019-11-03] MEDS: cefTRIAXone 1,000 MG in SYRINGE 1 EACH IV SCH (11:28)
[2019-11-03 11:56] LABS: PT Patient Result 10.8 SECS (9.8-11.9)
[2019-11-03] MEDS: CLINDAMYCIN 1% LOTION 60 ML BOTTLE TOP SCH ×2 (12:38→20:35)
[2019-11-03] MEDS: LEVOFLOXACIN 500 MG TABLET PO SCH (12:38)
[2019-11-03 14:56] LABS: 25-Hydroxy D Total 6.3 ng/mL; 25-Hydroxy D2 < 4.0 ng/mL; 25-Hydroxy D3 6.3 ng/mL
[2019-11-03] MEDS: POTASSIUM CHLORIDE IV SCH (15:39)
[2019-11-03] MEDS: SODIUM BICARB IV SCH (15:39)
[2019-11-03] MEDS: [UNRECOGNIZED DRUG - OTHER] IV SCH (15:39)
[2019-11-04] MEDS: SODIUM BICARB IV SCH ×3 (00:50→21:21)
[2019-11-04] MEDS: [UNRECOGNIZED DRUG - OTHER] IV SCH ×3 (00:50→21:21)
[2019-11-04] MEDS: POTASSIUM CHLORIDE IV SCH ×3 (00:50→21:21)
[2019-11-04] MEDS: LINEZOLID INJ 600 MG in PREMIX 1 EACH IV SCH ×2 (01:05→14:33)
[2019-11-04] MEDS: NOREPINEPHRINE 8 MG in SODIUM CHLORIDE 0.9% 242 ML IV SCH (02:34)
[2019-11-04 04:17] LABS: Basophils % 0.4 % (0.0-0.8); Eosinophils # 0.5 10*3/uL (0.0-0.87); Hematocrit 27.9 VOL% (42.0-52.0); Immature Granulocytes % 0.6 %; Immature Granulocytes Absolute 0.06 #; Lymphocytes # 0.8 10*3/uL (1.4-4.0); Lymphocytes % 8.4 % (21.2-54.2); Mean Corpuscular HGB Conc 32.3 GM/DL (32-36); Mean Corpuscular Volume 89.7 FL (87-102); Mean Platelet Volume 9.1 FL (9.6-12.0); Monocytes % 4.2 % (1.7-12.7); Neutrophils % 81.4 % (38.7-73.9); Platelet Count 228 T/CUMM (130-400); Red Blood Count 3.11 MC/CUMM (3.8-5.5); Red Cell Distribution Width 14.6 % (9.3-17.3); White Blood Count 9.4 T/CUMM (4-12)
[2019-11-04 04:32] LABS: Calcium 6.3 MG/DL (8.5-10.1); Osmolality,Calculated 276.9 MOS/KG (273-304)
[2019-11-04] MEDS: INSULIN REGULAR 100 UNIT/ML SUBCUT SCH ×4 (06:20→23:35)
[2019-11-04] MEDS: CALCIUM CARBONATE CHEW 500 MG TABLET PO SCH ×3 (09:15→21:22)
[2019-11-04] MEDS: PANTOPRAZOLE 40 MG VIAL IV SCH ×2 (09:15→21:22)
[2019-11-04] MEDS: MAGNESIUM SULF RIDER 2 GM in PREMIX 1 EACH IV PRN (09:16)
[2019-11-04] MEDS: CLINDAMYCIN 1% LOTION 60 ML BOTTLE TOP SCH ×2 (09:19→21:22)
[2019-11-04] MEDS: DESITIN 4OZ/NYSTATIN 15 GRAM MIXTURE PASTE TOP SCH ×2 (09:19→21:22)
[2019-11-04] MEDS: INSULIN GLARGINE 100 UNIT/ML SUBCUT SCH (16:58)
[2019-11-04] MEDS: LACTATED RINGERS 1,000 ML IV SCH (19:21)
[2019-11-05] MEDS: NOREPINEPHRINE 8 MG in SODIUM CHLORIDE 0.9% 242 ML IV SCH (01:44)
[2019-11-05] MEDS: LINEZOLID INJ 600 MG in PREMIX 1 EACH IV SCH (01:55)
[2019-11-05 04:37] LABS: Basophils % 0.2 % (0.0-0.8); Eosinophils # 0.4 10*3/uL (0.0-0.87); Eosinophils % 4.5 % (0.00-10.9); Hematocrit 29.1 VOL% (42.0-52.0); Hemoglobin 9.5 GM/DL (14.0-18.0); Immature Granulocytes % 0.5 %; Immature Granulocytes Absolute 0.05 #; Lymphocytes # 1.1 10*3/uL (1.4-4.0); Lymphocytes % 11.3 % (21.2-54.2); Mean Corpuscular HGB Conc 32.6 GM/DL (32-36); Mean Corpuscular Volume 88.2 FL (87-102); Mean Platelet Volume 9.4 FL (9.6-12.0); Monocytes % 4.1 % (1.7-12.7); Neutrophils % 79.4 % (38.7-73.9); Platelet Count 238 T/CUMM (130-400); Red Cell Distribution Width 14.5 % (9.3-17.3); White Blood Count 9.5 T/CUMM (4-12)
[2019-11-05 05:05] LABS: Albumin 1.5 G/DL (3.4-5.0); Calcium 6.4 MG/DL (8.5-10.1); Osmolality,Calculated 274.8 MOS/KG (273-304)
[2019-11-05] MEDS: INSULIN REGULAR 100 UNIT/ML SUBCUT SCH ×3 (06:23→17:30)
[2019-11-05] MEDS: CALCIUM CARBONATE CHEW 500 MG TABLET PO SCH ×3 (08:58→22:26)
[2019-11-05] MEDS: SODIUM BICARBONATE 650 MG TABLET PO SCH ×3 (08:58→22:07)
[2019-11-05] MEDS: PANTOPRAZOLE 40 MG VIAL IV SCH (08:59)
[2019-11-05] MEDS: CLINDAMYCIN 1% LOTION 60 ML BOTTLE TOP SCH (09:01)
[2019-11-05] MEDS: DESITIN 4OZ/NYSTATIN 15 GRAM MIXTURE PASTE TOP SCH ×2 (09:01→22:07)
[2019-11-05] MEDS: LACTATED RINGERS 1,000 ML IV SCH (09:08)
[2019-11-05] MEDS: LEVOFLOXACIN 500 MG TABLET PO SCH (12:31)
[2019-11-05] MEDS: INSULIN GLARGINE 100 UNIT/ML SUBCUT SCH (16:22)
[2019-11-06] MEDS: INSULIN REGULAR 100 UNIT/ML SUBCUT SCH ×4 (00:59→18:07)
[2019-11-06 07:08] LABS: Calcium 6.3 MG/DL (8.5-10.1)
[2019-11-06] MEDS: LACTATED RINGERS 1,000 ML IV SCH (07:43)
[2019-11-06] MEDS: SODIUM BICARBONATE 650 MG TABLET PO SCH ×3 (09:15→21:14)
[2019-11-06] MEDS: CALCIUM CARBONATE CHEW 500 MG TABLET PO SCH ×3 (09:16→22:38)
[2019-11-06] MEDS: CALCIUM GLUCONATE 2,000 MG in SODIUM CHLORIDE 0.9% 100 ML IV PRN (09:17)
[2019-11-06] MEDS: DESITIN 4OZ/NYSTATIN 15 GRAM MIXTURE PASTE TOP SCH ×2 (09:37→21:14)
[2019-11-06] MEDS: ONDANSETRON 4 MG/2 ML VIAL IV PRN (17:54)
[2019-11-06] MEDS: INSULIN GLARGINE 100 UNIT/ML SUBCUT SCH (17:54)
[2019-11-07] MEDS: INSULIN REGULAR 100 UNIT/ML SUBCUT SCH ×4 (02:17→18:44)
[2019-11-07 07:09] LABS: Calcium 6.6 MG/DL (8.5-10.1); Osmolality,Calculated 288.4 MOS/KG (273-304)
[2019-11-07] MEDS: SODIUM BICARBONATE 650 MG TABLET PO SCH ×3 (08:41→20:50)
[2019-11-07] MEDS: CALCIUM CARBONATE CHEW 500 MG TABLET PO SCH ×3 (08:41→21:15)
[2019-11-07] MEDS: DESITIN 4OZ/NYSTATIN 15 GRAM MIXTURE PASTE TOP SCH ×2 (08:42→21:14)
[2019-11-07] MEDS: LACTATED RINGERS 1,000 ML IV SCH (09:52)
[2019-11-07] MEDS: LEVOFLOXACIN 500 MG TABLET PO SCH (12:12)
[2019-11-07] MEDS: CALCIUM GLUCONATE 2,000 MG in SODIUM CHLORIDE 0.9% 100 ML IV PRN (12:16)
[2019-11-07] MEDS: INSULIN GLARGINE 100 UNIT/ML SUBCUT SCH (16:19)
[2019-11-08] MEDS: INSULIN REGULAR 100 UNIT/ML SUBCUT SCH ×4 (00:38→18:08)
[2019-11-08 06:29] LABS: Calcium 6.7 MG/DL (8.5-10.1); Osmolality,Calculated 288.4 MOS/KG (273-304)
[2019-11-08 06:41] LABS: Calcium 6.8 MG/DL (8.5-10.1); Osmolality,Calculated 288.4 MOS/KG (273-304)
[2019-11-08] MEDS: ALBUMIN 25% 25 GM in PREMIX 1 EACH IV SCH ×2 (09:20→20:37)
[2019-11-08] MEDS: SODIUM BICARBONATE 650 MG TABLET PO SCH ×3 (09:24→20:36)
[2019-11-08] MEDS: CALCIUM CARBONATE CHEW 500 MG TABLET PO SCH (09:24)
[2019-11-08] MEDS: DESITIN 4OZ/NYSTATIN 15 GRAM MIXTURE PASTE TOP SCH ×2 (09:25→20:43)
[2019-11-08] MEDS: ENOXAPARIN 30 MG/0.3 ML SYRINGE SUBCUT SCH (10:08)
[2019-11-09] MEDS: INSULIN REGULAR 100 UNIT/ML SUBCUT SCH ×3 (01:03→12:20)
[2019-11-09 05:58] LABS: Basophils % 0.4 % (0.0-0.8); Eosinophils # 0.6 10*3/uL (0.0-0.87); Eosinophils % 7.1 % (0.00-10.9); Hematocrit 24.4 VOL% (42.0-52.0); Hemoglobin 7.5 GM/DL (14.0-18.0); Immature Granulocytes % 0.4 %; Immature Granulocytes Absolute 0.03 #; Lymphocytes # 1.1 10*3/uL (1.4-4.0); Lymphocytes % 13.4 % (21.2-54.2); Mean Corpuscular HGB Conc 30.7 GM/DL (32-36); Mean Corpuscular Volume 93.1 FL (87-102); Mean Platelet Volume 9.5 FL (9.6-12.0); Monocytes % 4.9 % (1.7-12.7); Neutrophils % 73.8 % (38.7-73.9); Platelet Count 136 T/CUMM (130-400); Red Blood Count 2.62 MC/CUMM (3.8-5.5); Red Cell Distribution Width 14.7 % (9.3-17.3); White Blood Count 8.4 T/CUMM (4-12)
[2019-11-09 06:34] LABS: Albumin 2.1 G/DL (3.4-5.0); Bilirubin,Total 1.5 MG/DL (0.2-1.0); Calcium 6.9 MG/DL (8.5-10.1); Osmolality,Calculated 289.4 MOS/KG (273-304); Total Protein 6.1 G/DL (6.4-8.3)
[2019-11-09] MEDS: SODIUM BICARBONATE 650 MG TABLET PO SCH ×2 (08:04→15:01)
[2019-11-09] MEDS: DESITIN 4OZ/NYSTATIN 15 GRAM MIXTURE PASTE TOP SCH (08:04)
[2019-11-09] MEDS: ALBUMIN 25% 25 GM in PREMIX 1 EACH IV SCH (08:04)
[2019-11-09] MEDS: ENOXAPARIN 30 MG/0.3 ML SYRINGE SUBCUT SCH (09:10)
[2019-11-09] MEDS: LEVOFLOXACIN 500 MG TABLET PO SCH (10:36)
[2019-11-09 11:45] VITALS: BP 131/84
== END 2019-11-09 15:57 | disposition home or self-care (01) | DRG 871 ==
LOC: EDUNIT# → EDBD → N.ED 00:09 → SUATTDRO 01:38 → N.EDINP 01:38 → N.ICU 01:52 → N.TELES 10-30 23:16
PROVIDERS: ADMIT Internal Medicine; ATTEND Internal Medicine

== ENCOUNTER 2019-12-06 17:32 | Inpatient (IN) ==
[2019-12-06] MEDS ORDERED: LACTATED RINGERS 2,000 ML IV ONE (18:04)
[2019-12-06 18:20] LABS: ABG Base Excess -28.2 MMOL/L (-2.5-2.5); ABG HCO3 4.9 MMOL/L (20-26); ABG Oxygen Saturation 89.8 % (95-100); ABG PO2 85.1 MM HG (80-95); ABG TCO2 3.3 MMOL/L (23-27)
[2019-12-06 18:24] LABS: ABG PH 6.895 (7.35-7.45)
[2019-12-06 18:25] LABS: ABG PCO2 16.3 MM HG (35-48)
[2019-12-06] MEDS ORDERED: SODIUM BICARBONATE 50 MEQ/50 ML VIAL IV STA (18:26)
[2019-12-06 19:07] LABS: Basophils # 0.1 10*3/uL (0.0-0.2); Basophils % 0.2 % (0.0-0.8); Eosinophils # 0.1 10*3/uL (0.0-0.87); Eosinophils % 0.3 % (0.00-10.9); Hematocrit 23.7 VOL% (42.0-52.0); Hemoglobin 7.8 GM/DL (14.0-18.0); Immature Granulocytes % 2.9 %; Immature Granulocytes Absolute 1.03 #; Lymphocytes # 1.1 10*3/uL (1.4-4.0); Mean Corpuscular HGB Conc 32.9 GM/DL (32-36); Mean Corpuscular Volume 89.4 FL (87-102); Mean Platelet Volume 10.3 FL (9.6-12.0); NRBC # 0.16 10*3/uL; Neutrophils % 88.6 % (38.7-73.9); Platelet Count 268 T/CUMM (130-400); Red Blood Count 2.65 MC/CUMM (3.8-5.5); Red Cell Distribution Width 16.2 % (9.3-17.3); White Blood Count 35.3 T/CUMM (4-12)
[2019-12-06] MEDS ORDERED: CEFEPIME 1,000 MG in SODIUM CHLORIDE 0.9% 100 ML IV STA (19:10)
[2019-12-06 19:20] LABS: INR 1.2; PT Patient Result 12.9 SECS (9.8-11.9)
[2019-12-06 19:23] LABS: Partial Thromboplastin Time 52.7 SECS (23.9-33.8)
[2019-12-06 19:33] LABS: Alanine Aminotransferase 41 U/L (16-61); Albumin 2.9 G/DL (3.4-5.0); Alkaline Phosphatase 238 U/L (45-117); Aspartate Amino Transferase 11 U/L (0-37); Bilirubin,Total < 0.39 MG/DL (0.2-1.0); Blood Urea Nitrogen 128 MG/DL (7-18); Calcium 6.9 MG/DL (8.5-10.1); Estimated Glom Filtration Rate 3 ML/MIN; Glucose 144 MG/DL (74-106); Total Protein 8.4 G/DL (6.4-8.3)
[2019-12-06 19:35] LABS: Anisocytosis 2+; Hypochromasia 2+; Lymphocytes 4 % (20-55); Metamyelocytes 1 %; Microcytosis 1+; Segmented Neutrophils 94 % (50-85); Total Cells Counted 100
[2019-12-06 19:36] LABS: Poikilocytosis Slight; Tear Drop Cells Slight
[2019-12-06 19:37] LABS: Burr Cells Slight
[2019-12-06 20:00] LABS: Amorphous Crystals,Urine Occasional /HPF (Few); Apearance,Urine Slightly Hazy (Clear); Bacteria,Urine Occasional /HPF (Few); Bilirubin,Urine Negative (Negative); Blood, Urine Moderate mg/dL (Negative); Glucose,Urine (UA) Negative (Negative); Hyaline Casts,Urine 3 /LPF (0-3); Ketones,Urine 5 mg/dL (Negative); Mucus,Urine Occasional /LPF (Occasional); Nitrite,Urine Negative (Negative); Protein,Urine 100 MG/DL; RBC,Urine 18 /HPF (0-4); Squamous Epithelial Cell,Urine Occasional /HPF (0-10); Urine Color Amber (Yellow); Urine Specific Gravity 1.017 (1.001-1.035); Urine Urobilinogen < 2.0 EU/DL (0.2-1.0); WBC,Urine 20 /HPF (0-6)
[2019-12-06 20:06] LABS: Barbiturates Screen,Urine Negative (Negative); Benzodiazepines Screen,Urine Negative (Negative); Cannabinoid Screen,Urine Negative (Negative); Opiate Screen,Urine Negative (Negative); Phencyclidine Screen,Urine Negative (Negative)
[2019-12-06 20:16] LABS: ABG Base Excess -24.2 MMOL/L (-2.5-2.5); ABG HCO3 6.6 MMOL/L (20-26); ABG Oxygen Saturation 98.7 % (95-100); Allen Test Positive; Pt O2 Delivery Device Room Air
[2019-12-06 20:17] LABS: ABG PH 7.123 (7.35-7.45)
[2019-12-06 20:18] LABS: ABG PCO2 12.4 MM HG (35-48)
[2019-12-06] MEDS ORDERED: ALBUTEROL 2.5 MG/3 ML NEB RESP TX PRN (20:50)
[2019-12-06] MEDS ORDERED: ONDANSETRON 4 MG/2 ML VIAL IV PRN (20:50)
[2019-12-06] MEDS ORDERED: LORazepam 2 MG/1 ML VIAL IV PRN (21:06)
[2019-12-06] MEDS: SODIUM BICARB INJ 100 MEQ in STERILE WATER INJ 1,000 ML IV SCH (21:45)
[2019-12-06] MEDS: DOPamine 800 MG/250 ML PREMIX IV SCH (22:00)
[2019-12-06] MEDS: FAMOTIDINE 20 MG/2 ML VIAL IV SCH (22:05)
[2019-12-06] MEDS: MORPHINE 4 MG/1 ML VIAL IV PRN (22:20)
[2019-12-06] MEDS ORDERED: FLUCONAZOLE INJ 200 MG in PREMIX 1 EACH IV ONE (23:00)
[2019-12-06] MEDS: SODIUM BICARBONATE 650 MG TABLET PO SCH (23:20)
[2019-12-06] MEDS: CALCIUM CARBONATE CHEW 500 MG TABLET PO PRN (23:20)
[2019-12-07] MEDS: MORPHINE 4 MG/1 ML VIAL IV PRN (02:25)
[2019-12-07 05:17] LABS: Basophils # 0.1 10*3/uL (0.0-0.2); Basophils % 0.3 % (0.0-0.8); Eosinophils # 0.1 10*3/uL (0.0-0.87); Eosinophils % 0.3 % (0.00-10.9); Hematocrit 26.7 VOL% (42.0-52.0); Hemoglobin 8.5 GM/DL (14.0-18.0); Immature Granulocytes % 1.8 %; Immature Granulocytes Absolute 0.66 #; Lymphocytes % 2.7 % (21.2-54.2); Mean Corpuscular HGB Conc 31.8 GM/DL (32-36); Mean Corpuscular Volume 92.7 FL (87-102); Mean Platelet Volume 10.2 FL (9.6-12.0); NRBC # 0.12 10*3/uL; Neutrophils % 89.9 % (38.7-73.9); Platelet Count 284 T/CUMM (130-400); Red Blood Count 2.88 MC/CUMM (3.8-5.5); Red Cell Distribution Width 16.5 % (9.3-17.3); White Blood Count 36.8 T/CUMM (4-12)
[2019-12-07 05:30] LABS: Albumin 2.7 G/DL (3.4-5.0); Bilirubin,Total 0.4 MG/DL (0.2-1.0); Calcium 6.5 MG/DL (8.5-10.1); Osmolality,Calculated 319.5 MOS/KG (273-304); Total Protein 8.3 G/DL (6.4-8.3)
[2019-12-07 05:35] LABS: Hypochromasia 1+; Lymphocytes 5 % (20-55); Nucleated Red Blood Cells 1 (0-5); Platelet Estimate Adequate; Segmented Neutrophils 89 % (50-85); Total Cells Counted 100
[2019-12-07 05:36] LABS: Microcytosis 1+
[2019-12-07 08:00] LABS: ABG HCO3 7.7 MMOL/L (20-26); ABG Oxygen Saturation 97.6 % (95-100); ABG TCO2 5.6 MMOL/L (23-27)
[2019-12-07 08:02] LABS: ABG PCO2 19.2 MM HG (35-48); ABG PH 7.081 (7.35-7.45)
[2019-12-07] MEDS ORDERED: CALCIUM GLUCONATE 1,000 MG in SODIUM CHLORIDE 0.9% 100 ML IV ONE ×2 (09:18→17:00)
[2019-12-07] MEDS: SODIUM BICARBONATE 650 MG TABLET PO SCH ×3 (09:21→22:25)
[2019-12-07] MEDS ORDERED: CALCIUM GLUCONATE 1,000 MG/10 ML VIAL IV ONE (09:22)
[2019-12-07] MEDS: FAMOTIDINE 20 MG/2 ML VIAL IV SCH ×2 (09:38→21:15)
[2019-12-07] MEDS: SODIUM BICARB INJ 150 MEQ in STERILE WATER INJ 850 ML IV SCH ×4 (09:50→22:53)
[2019-12-07 15:12] LABS: ABG Base Excess -18.4 MMOL/L (-2.5-2.5); ABG HCO3 10.5 MMOL/L (20-26); ABG Oxygen Saturation 98.8 % (95-100); ABG PCO2 22.8 MM HG (35-48); ABG TCO2 8.4 MMOL/L (23-27)
[2019-12-07 15:15] LABS: ABG PH 7.188 (7.35-7.45)
[2019-12-07 15:29] LABS: Calcium 6.3 MG/DL (8.5-10.1); Osmolality,Calculated 316.5 MOS/KG (273-304)
[2019-12-07] MEDS ORDERED: POTASSIUM CHLORIDE 20 MEQ TABLET PO ONE (16:23)
[2019-12-07] MEDS: MOXIFLOXACIN 0.5% OPH SOLN 3 ML BOTTLE LEFT EYE SCH ×2 (17:16→22:52)
[2019-12-07] MEDS: SODIUM BICARB INJ 100 MEQ in STERILE WATER INJ 1,000 ML IV SCH (19:35)
[2019-12-07] MEDS ORDERED: CEFEPIME 1,000 MG in SODIUM CHLORIDE 0.9% 100 ML IV SCH (20:00)
[2019-12-07 20:35] LABS: Calcium 6.4 MG/DL (8.5-10.1); Osmolality,Calculated 318.3 MOS/KG (273-304)
[2019-12-07] MEDS ORDERED: FLUCONAZOLE INJ 200 MG in PREMIX 1 EACH IV SCH (21:00)
[2019-12-07] MEDS: DOPamine 800 MG/250 ML PREMIX IV SCH (22:26)
[2019-12-08] MEDS: SODIUM BICARB INJ 150 MEQ in STERILE WATER INJ 850 ML IV SCH ×6 (06:39→23:15)
[2019-12-08 06:42] LABS: Basophils # 0.1 10*3/uL (0.0-0.2); Basophils % 0.2 % (0.0-0.8); Eosinophils # 0.2 10*3/uL (0.0-0.87); Eosinophils % 0.6 % (0.00-10.9); Hematocrit 20.1 VOL% (42.0-52.0); Immature Granulocytes Absolute 0.39 #; Lymphocytes # 0.8 10*3/uL (1.4-4.0); Mean Corpuscular HGB Conc 34.8 GM/DL (32-36); Mean Corpuscular Volume 85.5 FL (87-102); Mean Platelet Volume 10.2 FL (9.6-12.0); Monocytes % 2.8 % (1.7-12.7); NRBC # 0.08 10*3/uL; Neutrophils % 93.4 % (38.7-73.9); Platelet Count 234 T/CUMM (130-400); Red Blood Count 2.35 MC/CUMM (3.8-5.5); Red Cell Distribution Width 16.7 % (9.3-17.3); White Blood Count 37.6 T/CUMM (4-12)
[2019-12-08 07:03] LABS: Lymphocytes 2 % (20-55); Segmented Neutrophils 97 % (50-85); Total Cells Counted 100
[2019-12-08 07:04] LABS: Hypochromasia 1+; Microcytosis 1+; Platelet Estimate Adequate
[2019-12-08] MEDS ORDERED: SODIUM CHLORIDE 0.9% 1,000 ML IV PRN (07:24)
[2019-12-08] MEDS: SODIUM BICARBONATE 650 MG TABLET PO SCH ×3 (08:09→21:46)
[2019-12-08 08:36] LABS: Bilirubin,Direct 0.16 MG/DL (0.0-0.20); Bilirubin,Indirect 0.3 MG/DL (0.0-1.0); Bilirubin,Total 0.5 MG/DL (0.2-1.0); Osmolality,Calculated 316.4 MOS/KG (273-304); Total Protein 6.5 G/DL (6.4-8.3)
[2019-12-08 08:42] LABS: Osmolality,Calculated 314.4 MOS/KG (273-304)
[2019-12-08 08:48] LABS: Calcium 5.8 MG/DL (8.5-10.1)
[2019-12-08] MEDS ORDERED: MAGNESIUM SULF RIDER 2 GM in PREMIX 1 EACH IV ONE (09:00)
[2019-12-08] MEDS ORDERED: PNEUMOCOCCAL VACCINE (23 VALENT) 0.5 ML VIAL IM ONE (09:00)
[2019-12-08] MEDS ORDERED: POTASSIUM CHLORIDE 20 MEQ TABLET PO ONE (09:00)
[2019-12-08] MEDS: MOXIFLOXACIN 0.5% OPH SOLN 3 ML BOTTLE LEFT EYE SCH ×3 (09:38→21:46)
[2019-12-08] MEDS ORDERED: CALCIUM GLUCONATE 1,000 MG in SODIUM CHLORIDE 0.9% 100 ML IV ONE (10:00)
[2019-12-08] MEDS: CALCIUM CARBONATE CHEW 500 MG TABLET PO PRN (14:25)
[2019-12-08 14:44] LABS: Apearance,Urine Clear (Clear); Bilirubin,Urine Negative (Negative); Blood, Urine 0.03 mg/dL (Negative); Glucose,Urine (UA) Negative (Negative); Ketones,Urine 25 mg/dL (Negative); Nitrite,Urine Negative (Negative); Protein,Urine 30 MG/DL; RBC,Urine 0-3 /HPF (0-4); Urine Color Amber (Yellow); Urine Specific Gravity 1.005 (1.001-1.035); Urine Urobilinogen 0.2 EU/DL (0.2-1.0)
[2019-12-08 14:45] LABS: Squamous Epithelial Cell,Urine Rare /HPF (0-10); WBC,Urine 15-20 /HPF (0-6)
[2019-12-08] MEDS: FAMOTIDINE 20 MG/2 ML VIAL IV SCH (21:46)
[2019-12-09] MEDS: SODIUM BICARB INJ 150 MEQ in STERILE WATER INJ 850 ML IV SCH ×3 (06:27→21:56)
[2019-12-09 06:29] LABS: Basophils # 0.1 10*3/uL (0.0-0.2); Basophils % 0.2 % (0.0-0.8); Eosinophils # 0.3 10*3/uL (0.0-0.87); Eosinophils % 0.7 % (0.00-10.9); Hematocrit 22.5 VOL% (42.0-52.0); Hemoglobin 8.1 GM/DL (14.0-18.0); Immature Granulocytes % 1.1 %; Immature Granulocytes Absolute 0.43 #; Lymphocytes # 1.1 10*3/uL (1.4-4.0); Lymphocytes % 2.8 % (21.2-54.2); Mean Platelet Volume 10.1 FL (9.6-12.0); Monocytes % 2.4 % (1.7-12.7); NRBC # 0.02 10*3/uL; Neutrophils % 92.8 % (38.7-73.9); Platelet Count 209 T/CUMM (130-400); Red Blood Count 2.71 MC/CUMM (3.8-5.5); Red Cell Distribution Width 15.8 % (9.3-17.3); White Blood Count 37.8 T/CUMM (4-12)
[2019-12-09 06:48] LABS: Osmolality,Calculated 303.1 MOS/KG (273-304)
[2019-12-09 06:58] LABS: Calcium 5.3 MG/DL (8.5-10.1)
[2019-12-09 07:01] LABS: Band Neutrophils 12 % (0-10); Eosinophils 1 % (0-10); Lymphocytes 6 % (20-55); Segmented Neutrophils 80 % (50-85); Total Cells Counted 100
[2019-12-09 07:02] LABS: Anisocytosis 2+; Platelet Estimate Normal; Smudge Cells 1+; Target Cells Few
[2019-12-09] MEDS ORDERED: POTASSIUM CHLORIDE 20 MEQ TABLET PO ONE (08:30)
[2019-12-09] MEDS ORDERED: CALCIUM GLUCONATE 2,000 MG in SODIUM CHLORIDE 0.9% 100 ML IV ONE (08:30)
[2019-12-09] MEDS ORDERED: MAGNESIUM SULF RIDER 4 GM in PREMIX 1 EACH IV PRN (09:09)
[2019-12-09] MEDS ORDERED: MAGNESIUM SULF RIDER 2 GM in PREMIX 1 EACH IV PRN (09:09)
[2019-12-09] MEDS ORDERED: PIPERACILLIN/TAZOBACTAM 2,250 MG in SODIUM CHLORIDE 0.9% 100 ML IV SCH (09:30)
[2019-12-09] MEDS: SODIUM BICARBONATE 650 MG TABLET PO SCH ×3 (09:57→21:55)
[2019-12-09] MEDS: PIPERACILLIN/TAZOBACTAM 3,375 MG in SODIUM CHLORIDE 0.9% 100 ML IV SCH ×2 (09:58→21:55)
[2019-12-09] MEDS ORDERED: LACTATED RINGERS 1,000 ML IV SCH (11:30)
[2019-12-09] MEDS ORDERED: propofoL 200 MG/20 ML VIAL IV ONE (12:30)
[2019-12-09] MEDS ORDERED: LIDOCAINE 2% 5 ML VIAL ONE (12:30)
[2019-12-09] MEDS ORDERED: fentaNYL 100 MCG/2 ML VIAL ONE (12:31)
[2019-12-09] MEDS ORDERED: SEVOFLURANE 1 UNIT/15 MINUTE INH ONE (12:31)
[2019-12-09] MEDS: MOXIFLOXACIN 0.5% OPH SOLN 3 ML BOTTLE LEFT EYE SCH ×3 (14:25→21:55)
[2019-12-09] MEDS: FAMOTIDINE 20 MG/2 ML VIAL IV SCH (21:55)
[2019-12-10 06:02] LABS: Basophils # 0.1 10*3/uL (0.0-0.2); Basophils % 0.2 % (0.0-0.8); Eosinophils # 0.2 10*3/uL (0.0-0.87); Eosinophils % 0.6 % (0.00-10.9); Hematocrit 20.9 VOL% (42.0-52.0); Hemoglobin 7.2 GM/DL (14.0-18.0); Immature Granulocytes Absolute 0.72 #; Lymphocytes # 0.8 10*3/uL (1.4-4.0); Lymphocytes % 2.3 % (21.2-54.2); Mean Corpuscular HGB Conc 34.4 GM/DL (32-36); Mean Corpuscular Volume 87.1 FL (87-102); Mean Platelet Volume 10.1 FL (9.6-12.0); Monocytes % 2.8 % (1.7-12.7); NRBC # 0.03 10*3/uL; Neutrophils % 92.1 % (38.7-73.9); Platelet Count 164 T/CUMM (130-400); Red Cell Distribution Width 15.7 % (9.3-17.3); White Blood Count 35.9 T/CUMM (4-12)
[2019-12-10 06:29] LABS: Alanine Aminotransferase 16 U/L (16-61); Albumin 1.5 G/DL (3.4-5.0); Alkaline Phosphatase 410 U/L (45-117); Aspartate Amino Transferase 10 U/L (0-37); Blood Urea Nitrogen 101 MG/DL (7-18); Estimated Glom Filtration Rate 5 ML/MIN; Glucose 192 MG/DL (74-106); Osmolality,Calculated 300.5 MOS/KG (273-304); Total Protein 5.5 G/DL (6.4-8.3)
[2019-12-10] MEDS ORDERED: SODIUM CHLORIDE 0.9% 250 ML IV ONE (06:31)
[2019-12-10 06:52] LABS: Calcium < 5.0 MG/DL (8.5-10.1)
[2019-12-10 07:19] LABS: Band Neutrophils 2 % (0-10); Eosinophils 1 % (0-10); Hypochromasia 1+; Lymphocytes 1 % (20-55); Segmented Neutrophils 93 % (50-85); Target Cells Slight; Total Cells Counted 100
[2019-12-10 07:20] LABS: Anisocytosis 1+; Microcytosis 1+; Platelet Estimate Adequate
[2019-12-10] MEDS ORDERED: CALCIUM GLUCONATE 1,000 MG in SODIUM CHLORIDE 0.9% 100 ML IV ONE (08:00)
[2019-12-10] MEDS: CALCIUM (CARBONATE)/VITAMIN D 600 MG-400 UNIT TABLET PO SCH ×2 (09:04→21:49)
[2019-12-10] MEDS: SODIUM BICARBONATE 650 MG TABLET PO SCH ×3 (09:05→21:49)
[2019-12-10] MEDS: MOXIFLOXACIN 0.5% OPH SOLN 3 ML BOTTLE LEFT EYE SCH ×3 (09:07→21:49)
[2019-12-10] MEDS ORDERED: SODIUM CHLORIDE 0.9% 1,000 ML IV PRN (09:12)
[2019-12-10] MEDS: SODIUM BICARB INJ 150 MEQ in STERILE WATER INJ 850 ML IV SCH ×3 (09:43→17:10)
[2019-12-10] MEDS: PIPERACILLIN/TAZOBACTAM 3,375 MG in SODIUM CHLORIDE 0.9% 100 ML IV SCH (09:43)
[2019-12-10] MEDS: FAMOTIDINE 20 MG/2 ML VIAL IV SCH (21:50)
[2019-12-11] MEDS: SODIUM BICARB INJ 150 MEQ in STERILE WATER INJ 850 ML IV SCH ×2 (04:41→09:28)
[2019-12-11 05:22] LABS: Basophils # 0.1 10*3/uL (0.0-0.2); Basophils % 0.2 % (0.0-0.8); Eosinophils # 0.3 10*3/uL (0.0-0.87); Eosinophils % 1.1 % (0.00-10.9); Hemoglobin 9.9 GM/DL (14.0-18.0); Immature Granulocytes % 1.2 %; Immature Granulocytes Absolute 0.31 #; Lymphocytes # 0.9 10*3/uL (1.4-4.0); Lymphocytes % 3.3 % (21.2-54.2); Mean Corpuscular HGB Conc 35.4 GM/DL (32-36); Mean Corpuscular Volume 86.7 FL (87-102); Mean Platelet Volume 9.7 FL (9.6-12.0); NRBC # 0.03 10*3/uL; Neutrophils % 92.2 % (38.7-73.9); Platelet Count 144 T/CUMM (130-400); Red Blood Count 3.23 MC/CUMM (3.8-5.5); Red Cell Distribution Width 14.2 % (9.3-17.3); White Blood Count 26.5 T/CUMM (4-12)
[2019-12-11 05:49] LABS: Albumin 1.5 G/DL (3.4-5.0); Bilirubin,Total 0.4 MG/DL (0.2-1.0); Osmolality,Calculated 301.7 MOS/KG (273-304); Total Protein 5.8 G/DL (6.4-8.3)
[2019-12-11] MEDS ORDERED: CALCIUM GLUCONATE 1,000 MG in SODIUM CHLORIDE 0.9% 100 ML IV ONE ×2 (06:30→10:38)
[2019-12-11 06:43] LABS: Band Neutrophils 3 % (0-10); Eosinophils 1 % (0-10); Lymphocytes 4 % (20-55); Platelet Estimate Adequate; Segmented Neutrophils 91 % (50-85); Total Cells Counted 100
[2019-12-11 06:44] LABS: Anisocytosis 2+; Hypochromasia Slight
[2019-12-11] MEDS: CALCIUM CARBONATE CHEW 500 MG TABLET PO PRN (08:22)
[2019-12-11] MEDS: SODIUM BICARBONATE 650 MG TABLET PO SCH ×2 (08:22→14:00)
[2019-12-11] MEDS: CALCIUM (CARBONATE)/VITAMIN D 600 MG-400 UNIT TABLET PO SCH (08:22)
[2019-12-11] MEDS: INSULIN GLARGINE 100 UNIT/ML SUBCUT SCH (08:23)
[2019-12-11 08:39] LABS: Basophils # 0.1 10*3/uL (0.0-0.2); Basophils % 0.2 % (0.0-0.8); Eosinophils # 0.3 10*3/uL (0.0-0.87); Eosinophils % 1.3 % (0.00-10.9); Hematocrit 28.8 VOL% (42.0-52.0); Hemoglobin 10.2 GM/DL (14.0-18.0); Immature Granulocytes % 0.8 %; Lymphocytes # 0.9 10*3/uL (1.4-4.0); Lymphocytes % 3.8 % (21.2-54.2); Mean Corpuscular HGB Conc 35.4 GM/DL (32-36); Mean Platelet Volume 10.1 FL (9.6-12.0); Monocytes % 2.1 % (1.7-12.7); NRBC # 0.02 10*3/uL; Neutrophils % 91.8 % (38.7-73.9); Platelet Count 146 T/CUMM (130-400); Red Blood Count 3.39 MC/CUMM (3.8-5.5); Red Cell Distribution Width 14.6 % (9.3-17.3); White Blood Count 24.2 T/CUMM (4-12)
[2019-12-11] MEDS ORDERED: INSULIN GLARGINE 100 UNIT/ML SUBCUT SCH (09:00)
[2019-12-11 09:05] LABS: Albumin 1.5 G/DL (3.4-5.0); Bilirubin,Total 0.4 MG/DL (0.2-1.0); Osmolality,Calculated 297.7 MOS/KG (273-304); Total Protein 5.9 G/DL (6.4-8.3)
[2019-12-11 09:10] LABS: Calcium 5.3 MG/DL (8.5-10.1)
[2019-12-11 09:28] LABS: Anisocytosis 2+; Band Neutrophils 5 % (0-10); Eosinophils 2 % (0-10); Hypochromasia Slight; Lymphocytes 6 % (20-55); Platelet Estimate Adequate; Segmented Neutrophils 85 % (50-85); Total Cells Counted 100
[2019-12-11] MEDS: MOXIFLOXACIN 0.5% OPH SOLN 3 ML BOTTLE LEFT EYE SCH ×3 (09:29→21:13)
[2019-12-11] MEDS ORDERED: STERILE WATER IV SCH (09:51)
[2019-12-11] MEDS ORDERED: POTASSIUM CHLORIDE IV SCH (09:51)
[2019-12-11] MEDS ORDERED: SODIUM BICARB IV SCH (09:51)
[2019-12-11] MEDS ORDERED: POTASSIUM CHLORIDE 20 MEQ TABLET PO ONE (14:58)
[2019-12-11] MEDS: SODIUM CHLORIDE 0.9% 1,000 ML IV SCH ×2 (16:45→23:36)
[2019-12-11] MEDS ORDERED: CALCIUM (CARBONATE) 500 MG TABLET PO SCH (21:00)
[2019-12-11] MEDS: FAMOTIDINE 20 MG/2 ML VIAL IV SCH (21:13)
[2019-12-12] MEDS: SODIUM CHLORIDE 0.9% 1,000 ML IV SCH ×4 (05:59→21:44)
[2019-12-12 06:30] LABS: Basophils # 0.1 10*3/uL (0.0-0.2); Basophils % 0.3 % (0.0-0.8); Eosinophils # 0.4 10*3/uL (0.0-0.87); Eosinophils % 1.9 % (0.00-10.9); Hematocrit 30.8 VOL% (42.0-52.0); Hemoglobin 10.6 GM/DL (14.0-18.0); Immature Granulocytes % 0.8 %; Immature Granulocytes Absolute 0.16 #; Lymphocytes # 1.1 10*3/uL (1.4-4.0); Lymphocytes % 5.6 % (21.2-54.2); Mean Corpuscular HGB Conc 34.4 GM/DL (32-36); Mean Corpuscular Volume 86.8 FL (87-102); Mean Platelet Volume 9.9 FL (9.6-12.0); Monocytes % 3.2 % (1.7-12.7); NRBC # 0.03 10*3/uL; Neutrophils % 88.2 % (38.7-73.9); Platelet Count 135 T/CUMM (130-400); Red Blood Count 3.55 MC/CUMM (3.8-5.5); Red Cell Distribution Width 14.2 % (9.3-17.3); White Blood Count 19.9 T/CUMM (4-12)
[2019-12-12 06:53] LABS: Albumin 1.4 G/DL (3.4-5.0); Bilirubin,Total 1.5 MG/DL (0.2-1.0); Osmolality,Calculated 291.4 MOS/KG (273-304); Total Protein 6.1 G/DL (6.4-8.3)
[2019-12-12] MEDS ORDERED: ERGOCALCIFEROL 50,000 UNIT CAPSULE PO ONE (08:04)
[2019-12-12] MEDS ORDERED: CALCIUM CHLORIDE 1,000 MG/10 ML SYRINGE IV ONE (08:08)
[2019-12-12] MEDS: CALCIUM (CARBONATE) 500 MG TABLET PO SCH ×4 (09:29→21:47)
[2019-12-12] MEDS: ZINC GLUCONATE 50 MG TABLET PO SCH (09:29)
[2019-12-12] MEDS: POTASSIUM CHLORIDE 20 MEQ TABLET PO SCH (09:30)
[2019-12-12] MEDS: HEPARIN 5,000 UNIT/1 ML VIAL SUBCUT SCH ×2 (09:30→21:46)
[2019-12-12] MEDS ORDERED: CALCIUM GLUCONATE 1,000 MG in SODIUM CHLORIDE 0.9% 100 ML IV ONE (09:47)
[2019-12-12] MEDS: INSULIN GLARGINE 100 UNIT/ML SUBCUT SCH (10:11)
[2019-12-12] MEDS: MOXIFLOXACIN 0.5% OPH SOLN 3 ML BOTTLE LEFT EYE SCH ×3 (10:11→21:46)
[2019-12-12] MEDS: FAMOTIDINE 20 MG/2 ML VIAL IV SCH (21:46)
[2019-12-13] MEDS: SODIUM CHLORIDE 0.9% 1,000 ML IV SCH ×4 (04:40→21:34)
[2019-12-13 06:29] LABS: Basophils # 0.1 10*3/uL (0.0-0.2); Basophils % 0.3 % (0.0-0.8); Eosinophils # 0.3 10*3/uL (0.0-0.87); Eosinophils % 1.8 % (0.00-10.9); Hematocrit 31.2 VOL% (42.0-52.0); Hemoglobin 10.3 GM/DL (14.0-18.0); Immature Granulocytes % 0.8 %; Immature Granulocytes Absolute 0.14 #; Lymphocytes # 1.2 10*3/uL (1.4-4.0); Lymphocytes % 6.5 % (21.2-54.2); Mean Corpuscular Volume 89.7 FL (87-102); Mean Platelet Volume 10.2 FL (9.6-12.0); Monocytes % 2.6 % (1.7-12.7); NRBC # 0.04 10*3/uL; Platelet Count 128 T/CUMM (130-400); Red Blood Count 3.48 MC/CUMM (3.8-5.5); Red Cell Distribution Width 14.3 % (9.3-17.3); White Blood Count 18.6 T/CUMM (4-12)
[2019-12-13 07:10] LABS: Albumin 1.4 G/DL (3.4-5.0); Bilirubin,Total 0.7 MG/DL (0.2-1.0); Total Protein 5.8 G/DL (6.4-8.3)
[2019-12-13 07:14] LABS: Calcium 5.5 MG/DL (8.5-10.1)
[2019-12-13] MEDS: INSULIN GLARGINE 100 UNIT/ML SUBCUT SCH (09:19)
[2019-12-13] MEDS: POTASSIUM CHLORIDE 20 MEQ TABLET PO SCH (09:20)
[2019-12-13] MEDS: MOXIFLOXACIN 0.5% OPH SOLN 3 ML BOTTLE LEFT EYE SCH ×3 (09:21→21:38)
[2019-12-13] MEDS: HEPARIN 5,000 UNIT/1 ML VIAL SUBCUT SCH ×2 (09:21→21:32)
[2019-12-13] MEDS: CALCIUM (CARBONATE) 500 MG TABLET PO SCH ×4 (09:21→21:33)
[2019-12-13] MEDS: ZINC GLUCONATE 50 MG TABLET PO SCH (09:21)
[2019-12-13] MEDS: FAMOTIDINE 20 MG/2 ML VIAL IV SCH (21:33)
[2019-12-14] MEDS: SODIUM CHLORIDE 0.9% 1,000 ML IV SCH ×3 (02:53→21:57)
[2019-12-14 06:12] LABS: Basophils % 0.2 % (0.0-0.8); Eosinophils # 0.4 10*3/uL (0.0-0.87); Hematocrit 31.5 VOL% (42.0-52.0); Hemoglobin 10.5 GM/DL (14.0-18.0); Immature Granulocytes % 0.8 %; Lymphocytes # 1.2 10*3/uL (1.4-4.0); Mean Corpuscular HGB Conc 33.3 GM/DL (32-36); Mean Corpuscular Volume 90.8 FL (87-102); Mean Platelet Volume 10.1 FL (9.6-12.0); NRBC # 0.03 10*3/uL; Platelet Count 103 T/CUMM (130-400); Red Blood Count 3.47 MC/CUMM (3.8-5.5); Red Cell Distribution Width 13.9 % (9.3-17.3); White Blood Count 12.7 T/CUMM (4-12)
[2019-12-14 06:54] LABS: Alanine Aminotransferase 13 U/L (16-61); Albumin 1.2 G/DL (3.4-5.0); Alkaline Phosphatase 298 U/L (45-117); Aspartate Amino Transferase 18 U/L (0-37); Bilirubin,Total < 0.39 MG/DL (0.2-1.0); Blood Urea Nitrogen 64 MG/DL (7-18); Estimated Glom Filtration Rate 10 ML/MIN; Glucose 97 MG/DL (74-106); Osmolality,Calculated 272.2 MOS/KG (273-304); Total Protein 5.8 G/DL (6.4-8.3)
[2019-12-14 07:13] LABS: Calcium 5.4 MG/DL (8.5-10.1)
[2019-12-14] MEDS: CALCIUM (CARBONATE) 500 MG TABLET PO SCH ×4 (08:23→21:54)
[2019-12-14] MEDS: ZINC GLUCONATE 50 MG TABLET PO SCH (08:23)
[2019-12-14] MEDS: CALCIUM CARBONATE CHEW 500 MG TABLET PO PRN (08:23)
[2019-12-14] MEDS: HEPARIN 5,000 UNIT/1 ML VIAL SUBCUT SCH ×2 (08:23→21:54)
[2019-12-14] MEDS: MOXIFLOXACIN 0.5% OPH SOLN 3 ML BOTTLE LEFT EYE SCH ×3 (08:29→21:55)
[2019-12-14] MEDS: INSULIN GLARGINE 100 UNIT/ML SUBCUT SCH (08:29)
[2019-12-14] MEDS: FAMOTIDINE 20 MG/2 ML VIAL IV SCH (21:53)
[2019-12-14] MEDS: CHLORHEXIDINE 0.12% ORAL RINSE 60 ML BOTTLE SWISH/SPIT SCH (21:55)
[2019-12-15] MEDS: SODIUM CHLORIDE 0.9% 1,000 ML IV SCH ×3 (03:54→17:58)
[2019-12-15 08:34] LABS: Calcium 6.2 MG/DL (8.5-10.1)
[2019-12-15] MEDS: MOXIFLOXACIN 0.5% OPH SOLN 3 ML BOTTLE LEFT EYE SCH ×3 (09:46→21:49)
[2019-12-15] MEDS: INSULIN GLARGINE 100 UNIT/ML SUBCUT SCH (09:46)
[2019-12-15] MEDS: CHLORHEXIDINE 0.12% ORAL RINSE 60 ML BOTTLE SWISH/SPIT SCH (09:46)
[2019-12-15] MEDS: CALCIUM (CARBONATE) 500 MG TABLET PO SCH ×4 (09:49→21:47)
[2019-12-15] MEDS: ZINC GLUCONATE 50 MG TABLET PO SCH (09:55)
[2019-12-15] MEDS: HEPARIN 5,000 UNIT/1 ML VIAL SUBCUT SCH ×2 (10:00→21:48)
[2019-12-15] MEDS: FAMOTIDINE 20 MG/2 ML VIAL IV SCH (21:47)
[2019-12-16] MEDS: SODIUM CHLORIDE 0.9% 1,000 ML IV SCH ×4 (02:05→20:00)
[2019-12-16 05:51] LABS: Basophils % 0.2 % (0.0-0.8); Eosinophils # 0.3 10*3/uL (0.0-0.87); Eosinophils % 1.7 % (0.00-10.9); Hematocrit 28.6 VOL% (42.0-52.0); Hemoglobin 9.1 GM/DL (14.0-18.0); Immature Granulocytes % 0.7 %; Immature Granulocytes Absolute 0.13 #; Lymphocytes # 1.2 10*3/uL (1.4-4.0); Lymphocytes % 6.6 % (21.2-54.2); Mean Corpuscular HGB Conc 31.8 GM/DL (32-36); Monocytes % 2.3 % (1.7-12.7); Neutrophils % 88.5 % (38.7-73.9); Platelet Count 106 T/CUMM (130-400); Red Blood Count 3.01 MC/CUMM (3.8-5.5); Red Cell Distribution Width 13.8 % (9.3-17.3); White Blood Count 17.9 T/CUMM (4-12)
[2019-12-16 06:17] LABS: Calcium 6.6 MG/DL (8.5-10.1); Osmolality,Calculated 295.4 MOS/KG (273-304)
[2019-12-16 07:07] LABS: HIV Antigen/Antibody Result Nonreactive (Nonreactive)
[2019-12-16] MEDS: CALCIUM (CARBONATE) 500 MG TABLET PO SCH ×3 (10:46→21:00)
[2019-12-16] MEDS: MOXIFLOXACIN 0.5% OPH SOLN 3 ML BOTTLE LEFT EYE SCH ×3 (10:46→21:00)
[2019-12-16] MEDS: ZINC GLUCONATE 50 MG TABLET PO SCH (10:46)
[2019-12-16] MEDS: INSULIN GLARGINE 100 UNIT/ML SUBCUT SCH (10:47)
[2019-12-16] MEDS: HEPARIN 5,000 UNIT/1 ML VIAL SUBCUT SCH ×2 (10:47→21:00)
[2019-12-16] MEDS: CHLORHEXIDINE 0.12% ORAL RINSE 60 ML BOTTLE SWISH/SPIT SCH ×3 (10:47→21:00)
[2019-12-16] MEDS: DEXTROSE 50% 25 GM/50 ML VIAL IV PRN (11:26)
[2019-12-16] MEDS ORDERED: LIDOCAINE 1%/EPI INJ 20 ML VIAL ONE (11:35)
[2019-12-16] MEDS ORDERED: CHLORHEXIDINE 0.12% ORAL RINSE 60 ML BOTTLE SWISH/SPIT ONE (11:35)
[2019-12-16] MEDS ORDERED: propofoL 200 MG/20 ML VIAL IV ONE (13:51)
[2019-12-16] MEDS ORDERED: fentaNYL 100 MCG/2 ML VIAL ONE ×2 (13:52→13:58)
[2019-12-16] MEDS ORDERED: MIDAZOLAM 2 MG/2 ML VIAL ONE (13:52)
[2019-12-16] MEDS ORDERED: SEVOFLURANE 1 UNIT/15 MINUTE INH ONE (13:52)
[2019-12-16] MEDS ORDERED: LIDOCAINE 2% 5 ML VIAL ONE (13:52)
[2019-12-16] MEDS ORDERED: ONDANSETRON 4 MG/2 ML VIAL ONE (13:53)
[2019-12-16] MEDS ORDERED: ROCURONIUM 100 MG/10 ML VIAL IV ONE (13:53)
[2019-12-16] MEDS ORDERED: GLYCOPYRROLATE 0.4 MG/2 ML VIAL ONE (13:53)
[2019-12-16] MEDS ORDERED: NEOSTIGMINE 10 MG/10 ML VIAL ONE (13:53)
[2019-12-16] MEDS ORDERED: ESMOLOL 100 MG/10 ML VIAL IV ONE (13:53)
[2019-12-16] MEDS ORDERED: DEXAMETHASONE 4 MG/1 ML VIAL ONE (13:53)
[2019-12-16] MEDS ORDERED: LACTATED RINGERS 1,000 ML IV ONE (13:53)
[2019-12-16] MEDS: FAMOTIDINE 20 MG/2 ML VIAL IV SCH (21:03)
[2019-12-17] MEDS: SODIUM CHLORIDE 0.9% 1,000 ML IV SCH ×3 (02:41→17:35)
[2019-12-17 05:54] LABS: Basophils % 0.1 % (0.0-0.8); Hematocrit 29.2 VOL% (42.0-52.0); Immature Granulocytes % 0.6 %; Immature Granulocytes Absolute 0.12 #; Lymphocytes # 0.9 10*3/uL (1.4-4.0); Lymphocytes % 4.6 % (21.2-54.2); Mean Corpuscular HGB Conc 30.8 GM/DL (32-36); Mean Platelet Volume 10.1 FL (9.6-12.0); Monocytes % 2.4 % (1.7-12.7); Neutrophils % 92.3 % (38.7-73.9); Platelet Count 117 T/CUMM (130-400); Red Blood Count 3.01 MC/CUMM (3.8-5.5); Red Cell Distribution Width 14.1 % (9.3-17.3); White Blood Count 18.9 T/CUMM (4-12)
[2019-12-17 06:24] LABS: Calcium 6.8 MG/DL (8.5-10.1); Osmolality,Calculated 298.8 MOS/KG (273-304)
[2019-12-17 06:34] LABS: Hypochromasia 1+; Lymphocytes 2 % (20-55); Microcytosis 1+; Ovalocytes Slight; Platelet Estimate Decreased; Segmented Neutrophils 95 % (50-85); Total Cells Counted 100
[2019-12-17] MEDS ORDERED: SODIUM POLYSTYRENE SULFATE 15 GM/60 ML BOTTLE PO STA (09:59)
[2019-12-17] MEDS: ZINC GLUCONATE 50 MG TABLET PO SCH (10:18)
[2019-12-17] MEDS: HEPARIN 5,000 UNIT/1 ML VIAL SUBCUT SCH ×2 (10:18→22:09)
[2019-12-17] MEDS: MOXIFLOXACIN 0.5% OPH SOLN 3 ML BOTTLE LEFT EYE SCH ×3 (10:19→22:09)
[2019-12-17] MEDS: INSULIN GLARGINE 100 UNIT/ML SUBCUT SCH ×2 (11:35→12:21)
[2019-12-17] MEDS: CHLORHEXIDINE 0.12% ORAL RINSE 60 ML BOTTLE SWISH/SPIT SCH ×2 (11:36→22:09)
[2019-12-17] MEDS: CALCIUM (CARBONATE) 500 MG TABLET PO SCH ×2 (12:22→16:56)
[2019-12-17] MEDS: SODIUM BICARBONATE 650 MG TABLET PO SCH (16:55)
[2019-12-17] MEDS: FAMOTIDINE 20 MG/2 ML VIAL IV SCH (22:09)
[2019-12-18] MEDS: SODIUM CHLORIDE 0.9% 1,000 ML IV SCH ×4 (00:43→22:10)
[2019-12-18 06:10] LABS: Basophils % 0.2 % (0.0-0.8); Eosinophils # 0.3 10*3/uL (0.0-0.87); Eosinophils % 1.2 % (0.00-10.9); Hematocrit 25.4 VOL% (42.0-52.0); Hemoglobin 7.6 GM/DL (14.0-18.0); Immature Granulocytes % 0.7 %; Immature Granulocytes Absolute 0.16 #; Lymphocytes # 1.1 10*3/uL (1.4-4.0); Lymphocytes % 5.1 % (21.2-54.2); Mean Corpuscular HGB Conc 29.9 GM/DL (32-36); Mean Corpuscular Volume 98.4 FL (87-102); Mean Platelet Volume 10.4 FL (9.6-12.0); Monocytes % 2.1 % (1.7-12.7); Neutrophils % 90.7 % (38.7-73.9); Platelet Count 114 T/CUMM (130-400); Red Blood Count 2.58 MC/CUMM (3.8-5.5); Red Cell Distribution Width 14.1 % (9.3-17.3); White Blood Count 21.7 T/CUMM (4-12)
[2019-12-18 06:38] LABS: Calcium 6.6 MG/DL (8.5-10.1)
[2019-12-18 06:58] LABS: Band Neutrophils 1 % (0-10); Eosinophils 3 % (0-10); Hypochromasia 1+; Lymphocytes 2 % (20-55); Segmented Neutrophils 93 % (50-85); Total Cells Counted 100
[2019-12-18 06:59] LABS: Microcytosis 1+; Platelet Estimate Adequate
[2019-12-18] MEDS: CALCIUM (CARBONATE) 500 MG TABLET PO SCH ×3 (08:53→17:28)
[2019-12-18] MEDS: SODIUM BICARBONATE 650 MG TABLET PO SCH ×2 (08:54→17:29)
[2019-12-18] MEDS: INSULIN GLARGINE 100 UNIT/ML SUBCUT SCH (08:55)
[2019-12-18] MEDS: CHLORHEXIDINE 0.12% ORAL RINSE 60 ML BOTTLE SWISH/SPIT SCH ×2 (08:59→20:52)
[2019-12-18] MEDS: MOXIFLOXACIN 0.5% OPH SOLN 3 ML BOTTLE LEFT EYE SCH ×3 (09:01→20:52)
[2019-12-18] MEDS: HEPARIN 5,000 UNIT/1 ML VIAL SUBCUT SCH ×2 (10:36→20:52)
[2019-12-18] MEDS: ZINC GLUCONATE 50 MG TABLET PO SCH (10:36)
[2019-12-18] MEDS: FAMOTIDINE 20 MG/2 ML VIAL IV SCH (20:51)
[2019-12-18] MEDS ORDERED: FUROSEMIDE 40 MG/4 ML VIAL ONE (21:17)
[2019-12-18] MEDS ORDERED: FUROSEMIDE 40 MG/4 ML VIAL IV ONE (21:23)
[2019-12-18 21:43] LABS: Basophils % 0.2 % (0.0-0.8); Eosinophils # 0.2 10*3/uL (0.0-0.87); Eosinophils % 1.8 % (0.00-10.9); Hematocrit 25.3 VOL% (42.0-52.0); Hemoglobin 7.6 GM/DL (14.0-18.0); Immature Granulocytes % 0.7 %; Immature Granulocytes Absolute 0.08 #; Lymphocytes # 0.9 10*3/uL (1.4-4.0); Lymphocytes % 7.6 % (21.2-54.2); Mean Corpuscular Volume 98.4 FL (87-102); Mean Platelet Volume 10.1 FL (9.6-12.0); Monocytes % 2.8 % (1.7-12.7); Neutrophils % 86.9 % (38.7-73.9); Platelet Count 114 T/CUMM (130-400); Red Blood Count 2.57 MC/CUMM (3.8-5.5); Red Cell Distribution Width 14.2 % (9.3-17.3); White Blood Count 11.9 T/CUMM (4-12)
[2019-12-18 21:59] LABS: Albumin 1.3 G/DL (3.4-5.0); Bilirubin,Total 1.2 MG/DL (0.2-1.0); Calcium 6.4 MG/DL (8.5-10.1); Osmolality,Calculated 293.3 MOS/KG (273-304)
[2019-12-18] MEDS: DEXTROSE 50% 25 GM/50 ML VIAL IV PRN (23:15)
[2019-12-19] MEDS: DEXTROSE 50% 25 GM/50 ML VIAL IV PRN ×2 (03:35→23:19)
[2019-12-19 04:46] LABS: Basophils % 0.1 % (0.0-0.8); Eosinophils # 0.2 10*3/uL (0.0-0.87); Eosinophils % 1.1 % (0.00-10.9); Hematocrit 24.9 VOL% (42.0-52.0); Hemoglobin 7.7 GM/DL (14.0-18.0); Immature Granulocytes % 0.4 %; Immature Granulocytes Absolute 0.07 #; Lymphocytes # 0.6 10*3/uL (1.4-4.0); Lymphocytes % 3.1 % (21.2-54.2); Mean Corpuscular HGB Conc 30.9 GM/DL (32-36); Mean Corpuscular Volume 96.5 FL (87-102); Mean Platelet Volume 10.6 FL (9.6-12.0); Monocytes % 1.1 % (1.7-12.7); Neutrophils % 94.2 % (38.7-73.9); Platelet Count 115 T/CUMM (130-400); Red Blood Count 2.58 MC/CUMM (3.8-5.5); White Blood Count 19.8 T/CUMM (4-12)
[2019-12-19 05:03] LABS: Calcium 6.4 MG/DL (8.5-10.1); Osmolality,Calculated 300.4 MOS/KG (273-304)
[2019-12-19] MEDS: SODIUM CHLORIDE 0.9% 1,000 ML IV SCH ×3 (05:19→14:07)
[2019-12-19 05:31] LABS: Lymphocytes 4 % (20-55); Platelet Estimate Adequate; Segmented Neutrophils 95 % (50-85); Total Cells Counted 100
[2019-12-19] MEDS ORDERED: ETOMIDATE 20 MG/10 ML VIAL IV ONE ×2 (06:48→06:56)
[2019-12-19] MEDS ORDERED: SUCCINYLCHOLINE 200 MG/10 ML VIAL ONE (06:49)
[2019-12-19] MEDS ORDERED: SUCCINYLCHOLINE 200 MG/10 ML VIAL IV ONE (06:57)
[2019-12-19 07:52] LABS: ABG Base Excess -4.7 MMOL/L (-2.5-2.5); ABG HCO3 20.4 MMOL/L (20-26); ABG PCO2 47.5 MM HG (35-48); ABG PH 7.276 (7.35-7.45); ABG PO2 57.9 MM HG (80-95); ABG TCO2 20.8 MMOL/L (23-27); Pt O2 Delivery Device Ventilator
[2019-12-19] MEDS ORDERED: ROCURONIUM 500 MG in SODIUM CHLORIDE 0.9% 500 ML IV PRN (08:35)
[2019-12-19] MEDS ORDERED: ALBUMIN 25% 50 GM in PREMIX 1 EACH IV ONE (08:37)
[2019-12-19] MEDS: ALBUMIN 25% 25 GM in PREMIX 1 EACH IV SCH ×3 (10:04→17:41)
[2019-12-19] MEDS: CALCIUM (CARBONATE) 500 MG TABLET PO SCH ×3 (10:05→17:02)
[2019-12-19] MEDS: ZINC GLUCONATE 50 MG TABLET PO SCH (10:05)
[2019-12-19] MEDS: SODIUM BICARBONATE 650 MG TABLET PO SCH ×2 (10:06→17:02)
[2019-12-19] MEDS: INSULIN GLARGINE 100 UNIT/ML SUBCUT SCH (10:06)
[2019-12-19] MEDS: HEPARIN 5,000 UNIT/1 ML VIAL SUBCUT SCH ×2 (10:06→21:13)
[2019-12-19] MEDS: CHLORHEXIDINE 0.12% ORAL RINSE 60 ML BOTTLE SWISH/SPIT SCH ×2 (10:07→21:14)
[2019-12-19] MEDS: MEROPENEM 500 MG in SODIUM CHLORIDE 0.9% 100 ML IV SCH (10:07)
[2019-12-19 10:44] LABS: ABG Base Excess -3.7 MMOL/L (-2.5-2.5); ABG HCO3 21.3 MMOL/L (20-26); ABG Oxygen Saturation 96.9 % (95-100); ABG PCO2 42.4 MM HG (35-48); ABG PH 7.326 (7.35-7.45); ABG TCO2 20.6 MMOL/L (23-27); Pt O2 Delivery Device Ventilator
[2019-12-19] MEDS: MOXIFLOXACIN 0.5% OPH SOLN 3 ML BOTTLE LEFT EYE SCH ×3 (11:45→21:14)
[2019-12-19] MEDS: fentaNYL INJ 1,250 MCG in SODIUM CHLORIDE 0.9% 225 ML IV PRN (12:43)
[2019-12-19] MEDS ORDERED: DEXTROSE 10% 250 ML BAG IV PRN (19:02)
[2019-12-19] MEDS: FAMOTIDINE 20 MG/2 ML VIAL IV SCH (21:13)
[2019-12-20] MEDS ORDERED: NOREPINEPHRINE 4 MG/4 ML VIAL IV ONE (01:38)
[2019-12-20] MEDS: NOREPINEPHRINE 8 MG in SODIUM CHLORIDE 0.9% 242 ML IV PRN (01:50)
[2019-12-20] MEDS: ALBUMIN 25% 25 GM in PREMIX 1 EACH IV SCH ×3 (03:02→19:30)
[2019-12-20 03:34] LABS: Allen Test Positive; Pt O2 Delivery Device Ventilator
[2019-12-20 03:55] LABS: ABG PCO2 40.4 MM HG (35-48); ABG PH 7.333 (7.35-7.45)
[2019-12-20 03:56] LABS: ABG Base Excess -4.6 MMOL/L (-2.5-2.5); ABG PO2 54.6 MM HG (80-95); ABG TCO2 22.2 MMOL/L (23-27)
[2019-12-20] MEDS: fentaNYL INJ 1,250 MCG in SODIUM CHLORIDE 0.9% 225 ML IV PRN (04:28)
[2019-12-20 04:36] LABS: Basophils % 0.2 % (0.0-0.8); Eosinophils # 0.3 10*3/uL (0.0-0.87); Eosinophils % 2.1 % (0.00-10.9); Hematocrit 27.3 VOL% (42.0-52.0); Hemoglobin 8.4 GM/DL (14.0-18.0); Immature Granulocytes % 0.5 %; Immature Granulocytes Absolute 0.07 #; Lymphocytes # 0.9 10*3/uL (1.4-4.0); Lymphocytes % 5.8 % (21.2-54.2); Mean Corpuscular HGB Conc 30.8 GM/DL (32-36); Mean Corpuscular Volume 96.5 FL (87-102); Mean Platelet Volume 11.8 FL (9.6-12.0); Monocytes % 1.1 % (1.7-12.7); Neutrophils % 90.3 % (38.7-73.9); Platelet Count 112 T/CUMM (130-400); Red Blood Count 2.83 MC/CUMM (3.8-5.5); Red Cell Distribution Width 14.1 % (9.3-17.3); White Blood Count 14.8 T/CUMM (4-12)
[2019-12-20 04:59] LABS: Albumin 2.1 G/DL (3.4-5.0); Bilirubin,Total 0.5 MG/DL (0.2-1.0); Calcium 6.5 MG/DL (8.5-10.1); Osmolality,Calculated 289.5 MOS/KG (273-304); Total Protein 5.8 G/DL (6.4-8.3)
[2019-12-20] MEDS ORDERED: AMIODARONE INJ 150 MG in DEXTROSE 5% 100 ML IV ONE (05:02)
[2019-12-20] MEDS ORDERED: AMIODARONE 450 MG/9 ML VIAL IV ONE ×2 (05:02→13:28)
[2019-12-20] MEDS ORDERED: AMIODARONE 150 MG/3 ML VIAL ONE (05:02)
[2019-12-20 05:20] LABS: Hypochromasia 1+; Platelet Estimate Normal
[2019-12-20 05:23] LABS: ABG Base Excess -7.9 MMOL/L (-2.5-2.5); ABG HCO3 17.7 MMOL/L (20-26); ABG Oxygen Saturation 78.6 % (95-100); ABG PCO2 45.9 MM HG (35-48); ABG PH 7.233 (7.35-7.45); ABG PO2 51.2 MM HG (80-95); ABG TCO2 18.3 MMOL/L (23-27)
[2019-12-20] MEDS ORDERED: AMIODARONE INJ 450 MG in DEXTROSE 5% 241 ML IV SCH (05:30)
[2019-12-20] MEDS ORDERED: FUROSEMIDE 40 MG/4 ML VIAL IV ONE (08:19)
[2019-12-20] MEDS: CALCIUM (CARBONATE) 500 MG TABLET PO SCH ×3 (08:23→19:50)
[2019-12-20] MEDS: SODIUM BICARBONATE 650 MG TABLET PO SCH (08:44)
[2019-12-20] MEDS: ZINC GLUCONATE 50 MG TABLET PO SCH (08:45)
[2019-12-20] MEDS: HEPARIN 5,000 UNIT/1 ML VIAL SUBCUT SCH ×2 (08:45→21:40)
[2019-12-20] MEDS: INSULIN GLARGINE 100 UNIT/ML SUBCUT SCH (08:52)
[2019-12-20] MEDS: CHLORHEXIDINE 0.12% ORAL RINSE 60 ML BOTTLE SWISH/SPIT SCH (08:52)
[2019-12-20] MEDS: MOXIFLOXACIN 0.5% OPH SOLN 3 ML BOTTLE LEFT EYE SCH ×3 (08:53→22:05)
[2019-12-20] MEDS: MEROPENEM 500 MG in SODIUM CHLORIDE 0.9% 100 ML IV SCH (10:26)
[2019-12-20] MEDS ORDERED: HEPARIN DRIP 25,000 UNITS/500 ML PREMIX IV SCH (11:30)
[2019-12-20] MEDS: AMIODARONE INJ 450 MG in DEXTROSE 5% 241 ML IV SCH ×3 (15:02→22:11)
[2019-12-20] MEDS: FAMOTIDINE 20 MG/2 ML VIAL IV SCH (21:37)
[2019-12-21 04:45] LABS: ABG Base Excess -3.9 MMOL/L (-2.5-2.5); ABG HCO3 19.2 MMOL/L (20-26); ABG PCO2 27.8 MM HG (35-48); ABG PH 7.458 (7.35-7.45); ABG PO2 277.7 MM HG (80-95); ABG TCO2 20.1 MMOL/L (23-27); Allen Test Positive; Pt O2 Delivery Device Ventilator
[2019-12-21] MEDS: AMIODARONE INJ 450 MG in DEXTROSE 5% 241 ML IV SCH ×2 (06:35→13:44)
[2019-12-21 07:21] LABS: Basophils % 0.3 % (0.0-0.8); Eosinophils # 0.2 10*3/uL (0.0-0.87); Eosinophils % 1.3 % (0.00-10.9); Hematocrit 24.8 VOL% (42.0-52.0); Hemoglobin 7.8 GM/DL (14.0-18.0); Immature Granulocytes % 0.7 %; Lymphocytes # 1.3 10*3/uL (1.4-4.0); Mean Corpuscular HGB Conc 31.5 GM/DL (32-36); Mean Corpuscular Volume 94.7 FL (87-102); Mean Platelet Volume 10.9 FL (9.6-12.0); Monocytes % 1.6 % (1.7-12.7); Neutrophils % 87.1 % (38.7-73.9); Platelet Count 164 T/CUMM (130-400); Red Blood Count 2.62 MC/CUMM (3.8-5.5); Red Cell Distribution Width 14.4 % (9.3-17.3); White Blood Count 14.3 T/CUMM (4-12)
[2019-12-21 07:37] LABS: Calcium 6.5 MG/DL (8.5-10.1); Osmolality,Calculated 294.4 MOS/KG (273-304)
[2019-12-21] MEDS: CALCIUM (CARBONATE) 500 MG TABLET PO SCH ×3 (08:05→17:05)
[2019-12-21] MEDS ORDERED: FUROSEMIDE 40 MG/4 ML VIAL IV ONE (08:06)
[2019-12-21] MEDS: ZINC GLUCONATE 50 MG TABLET PO SCH (09:00)
[2019-12-21] MEDS: MOXIFLOXACIN 0.5% OPH SOLN 3 ML BOTTLE LEFT EYE SCH ×3 (09:05→21:10)
[2019-12-21] MEDS: HEPARIN 5,000 UNIT/1 ML VIAL SUBCUT SCH ×2 (09:05→21:09)
[2019-12-21] MEDS ORDERED: ATROPINE 1 MG/10 ML SYRINGE ONE (09:35)
[2019-12-21] MEDS: INSULIN GLARGINE 100 UNIT/ML SUBCUT SCH (09:40)
[2019-12-21] MEDS: MEROPENEM 500 MG in SODIUM CHLORIDE 0.9% 100 ML IV SCH (10:05)
[2019-12-21] MEDS: INSULIN REGULAR 100 UNIT/ML SUBCUT SCH ×2 (12:05→17:40)
[2019-12-21] MEDS: MIDODRINE 2.5 MG TABLET PO SCH ×2 (14:09→21:08)
[2019-12-21] MEDS: fentaNYL INJ 1,250 MCG in SODIUM CHLORIDE 0.9% 225 ML IV PRN (19:20)
[2019-12-21] MEDS: NOREPINEPHRINE 8 MG in SODIUM CHLORIDE 0.9% 242 ML IV PRN (20:30)
[2019-12-21] MEDS: FAMOTIDINE 20 MG/2 ML VIAL IV SCH (21:07)
[2019-12-21] MEDS: METOPROLOL TARTRATE 25 MG TABLET PO SCH (21:08)
[2019-12-21] MEDS: AMIODARONE 200 MG TABLET PO SCH (21:09)
[2019-12-22] MEDS: INSULIN REGULAR 100 UNIT/ML SUBCUT SCH ×5 (01:45→23:59)
[2019-12-22 04:25] LABS: Basophils % 0.3 % (0.0-0.8); Eosinophils # 0.2 10*3/uL (0.0-0.87); Hematocrit 23.5 VOL% (42.0-52.0); Hemoglobin 7.5 GM/DL (14.0-18.0); Immature Granulocytes % 0.7 %; Immature Granulocytes Absolute 0.08 #; Lymphocytes # 1.1 10*3/uL (1.4-4.0); Lymphocytes % 9.2 % (21.2-54.2); Mean Corpuscular HGB Conc 31.9 GM/DL (32-36); Mean Corpuscular Volume 94.4 FL (87-102); Mean Platelet Volume 11.5 FL (9.6-12.0); Monocytes % 3.8 % (1.7-12.7); Platelet Count 193 T/CUMM (130-400); Red Blood Count 2.49 MC/CUMM (3.8-5.5); Red Cell Distribution Width 14.1 % (9.3-17.3); White Blood Count 11.5 T/CUMM (4-12)
[2019-12-22 04:59] LABS: Calcium 6.6 MG/DL (8.5-10.1); Osmolality,Calculated 292.4 MOS/KG (273-304)
[2019-12-22 04:59] LABS: ABG Base Excess -2.4 MMOL/L (-2.5-2.5); ABG HCO3 22.8 MMOL/L (20-26); ABG Oxygen Saturation 94.1 % (95-100); ABG PCO2 40.6 MM HG (35-48); ABG PH 7.367 (7.35-7.45); ABG PO2 77.5 MM HG (80-95); Allen Test Positive; Pt O2 Delivery Device Ventilator
[2019-12-22] MEDS ORDERED: SODIUM CHLORIDE 0.9% 1,000 ML IV PRN (08:34)
[2019-12-22] MEDS ORDERED: FUROSEMIDE 40 MG/4 ML VIAL IV ONE (08:59)
[2019-12-22] MEDS: CALCIUM (CARBONATE) 500 MG TABLET PO SCH ×3 (09:35→17:21)
[2019-12-22] MEDS: AMIODARONE 200 MG TABLET PO SCH ×2 (09:36→21:39)
[2019-12-22] MEDS: MIDODRINE 2.5 MG TABLET PO SCH ×3 (09:36→21:41)
[2019-12-22] MEDS: INSULIN GLARGINE 100 UNIT/ML SUBCUT SCH (09:36)
[2019-12-22] MEDS: ZINC GLUCONATE 50 MG TABLET PO SCH (09:36)
[2019-12-22] MEDS: METOPROLOL TARTRATE 25 MG TABLET PO SCH ×2 (09:36→21:40)
[2019-12-22] MEDS: MEROPENEM 500 MG in SODIUM CHLORIDE 0.9% 100 ML IV SCH ×2 (09:37→09:56)
[2019-12-22] MEDS: HEPARIN 5,000 UNIT/1 ML VIAL SUBCUT SCH ×2 (09:37→21:39)
[2019-12-22] MEDS: MOXIFLOXACIN 0.5% OPH SOLN 3 ML BOTTLE LEFT EYE SCH ×3 (09:42→21:41)
[2019-12-22] MEDS ORDERED: FUROSEMIDE 40 MG/4 ML VIAL IV SCH (14:30)
[2019-12-22] MEDS: FUROSEMIDE 40 MG/4 ML VIAL IV SCH (17:21)
[2019-12-22] MEDS: FAMOTIDINE 20 MG/2 ML VIAL IV SCH (21:40)
[2019-12-23 03:25] LABS: ABG Base Excess -1.7 MMOL/L (-2.5-2.5); ABG Oxygen Saturation 98.6 % (95-100); ABG PCO2 42.4 MM HG (35-48); ABG PH 7.356 (7.35-7.45); ABG TCO2 21.9 MMOL/L (23-27); Allen Test Positive; Pt O2 Delivery Device Ventilator
[2019-12-23 04:40] LABS: Basophils % 0.3 % (0.0-0.8); Eosinophils # 0.2 10*3/uL (0.0-0.87); Eosinophils % 3.4 % (0.00-10.9); Hematocrit 28.5 VOL% (42.0-52.0); Hemoglobin 9.2 GM/DL (14.0-18.0); Immature Granulocytes % 0.7 %; Immature Granulocytes Absolute 0.04 #; Lymphocytes # 0.8 10*3/uL (1.4-4.0); Lymphocytes % 13.8 % (21.2-54.2); Mean Corpuscular HGB Conc 32.3 GM/DL (32-36); Mean Corpuscular Volume 93.8 FL (87-102); Mean Platelet Volume 11.3 FL (9.6-12.0); Monocytes % 9.3 % (1.7-12.7); Neutrophils % 72.5 % (38.7-73.9); Platelet Count 168 T/CUMM (130-400); Red Blood Count 3.04 MC/CUMM (3.8-5.5); Red Cell Distribution Width 14.3 % (9.3-17.3); White Blood Count 5.9 T/CUMM (4-12)
[2019-12-23 04:57] LABS: Calcium 6.7 MG/DL (8.5-10.1); Osmolality,Calculated 293.5 MOS/KG (273-304)
[2019-12-23] MEDS: fentaNYL INJ 1,250 MCG in SODIUM CHLORIDE 0.9% 225 ML IV PRN (05:24)
[2019-12-23] MEDS: INSULIN REGULAR 100 UNIT/ML SUBCUT SCH ×3 (05:29→18:34)
[2019-12-23 09:07] LABS: ABG Base Excess -1.7 MMOL/L (-2.5-2.5); ABG HCO3 22.9 MMOL/L (20-26); ABG Oxygen Saturation 93.3 % (95-100); ABG PCO2 46.1 MM HG (35-48); ABG PH 7.331 (7.35-7.45); ABG PO2 70.4 MM HG (80-95); ABG TCO2 22.4 MMOL/L (23-27); Allen Test Positive; Pt O2 Delivery Device Ventilator
[2019-12-23] MEDS: ZINC GLUCONATE 50 MG TABLET PO SCH (09:37)
[2019-12-23] MEDS: CALCIUM (CARBONATE) 500 MG TABLET PO SCH ×3 (09:37→16:40)
[2019-12-23] MEDS: AMIODARONE 200 MG TABLET PO SCH ×2 (09:37→20:41)
[2019-12-23] MEDS: MIDODRINE 2.5 MG TABLET PO SCH ×3 (09:38→20:41)
[2019-12-23] MEDS: INSULIN GLARGINE 100 UNIT/ML SUBCUT SCH (09:43)
[2019-12-23] MEDS: HEPARIN 5,000 UNIT/1 ML VIAL SUBCUT SCH ×2 (09:43→20:41)
[2019-12-23] MEDS: MEROPENEM 500 MG in SODIUM CHLORIDE 0.9% 100 ML IV SCH (09:43)
[2019-12-23] MEDS: FUROSEMIDE 40 MG/4 ML VIAL IV SCH ×3 (09:44→16:40)
[2019-12-23] MEDS: METOPROLOL TARTRATE 25 MG TABLET PO SCH ×2 (09:48→20:41)
[2019-12-23] MEDS: MOXIFLOXACIN 0.5% OPH SOLN 3 ML BOTTLE LEFT EYE SCH ×3 (09:50→20:42)
[2019-12-23] MEDS: FAMOTIDINE 20 MG/2 ML VIAL IV SCH (20:40)
[2019-12-24] MEDS: FUROSEMIDE 40 MG/4 ML VIAL IV SCH ×3 (00:39→17:14)
[2019-12-24] MEDS: INSULIN REGULAR 100 UNIT/ML SUBCUT SCH ×4 (00:42→18:02)
[2019-12-24] MEDS: fentaNYL INJ 1,250 MCG in SODIUM CHLORIDE 0.9% 225 ML IV PRN ×3 (01:58→14:20)
[2019-12-24 03:40] LABS: ABG Base Excess -2.5 MMOL/L (-2.5-2.5); ABG HCO3 22.3 MMOL/L (20-26); ABG Oxygen Saturation 97.7 % (95-100); ABG PCO2 53.7 MM HG (35-48); ABG PH 7.277 (7.35-7.45); ABG TCO2 22.7 MMOL/L (23-27); Allen Test Positive; Pt O2 Delivery Device Ventilator
[2019-12-24 05:08] LABS: Basophils % 0.6 % (0.0-0.8); Eosinophils # 0.2 10*3/uL (0.0-0.87); Eosinophils % 3.9 % (0.00-10.9); Hematocrit 32.3 VOL% (42.0-52.0); Hemoglobin 10.4 GM/DL (14.0-18.0); Immature Granulocytes % 0.9 %; Immature Granulocytes Absolute 0.05 #; Lymphocytes # 0.8 10*3/uL (1.4-4.0); Lymphocytes % 14.3 % (21.2-54.2); Mean Corpuscular HGB Conc 32.2 GM/DL (32-36); Mean Corpuscular Volume 93.9 FL (87-102); Mean Platelet Volume 11.8 FL (9.6-12.0); Monocytes % 12.8 % (1.7-12.7); Neutrophils % 67.5 % (38.7-73.9); Platelet Count 180 T/CUMM (130-400); Red Blood Count 3.44 MC/CUMM (3.8-5.5); Red Cell Distribution Width 14.3 % (9.3-17.3); White Blood Count 5.4 T/CUMM (4-12)
[2019-12-24 05:28] LABS: Calcium 7.5 MG/DL (8.5-10.1); Osmolality,Calculated 288.8 MOS/KG (273-304)
[2019-12-24] MEDS: CALCIUM (CARBONATE) 500 MG TABLET PO SCH ×3 (09:15→17:14)
[2019-12-24] MEDS: ZINC GLUCONATE 50 MG TABLET PO SCH (09:15)
[2019-12-24] MEDS: MEROPENEM 500 MG in SODIUM CHLORIDE 0.9% 100 ML IV SCH (09:15)
[2019-12-24] MEDS: MIDODRINE 2.5 MG TABLET PO SCH ×3 (09:16→20:20)
[2019-12-24] MEDS: HEPARIN 5,000 UNIT/1 ML VIAL SUBCUT SCH ×2 (09:16→20:22)
[2019-12-24] MEDS: INSULIN GLARGINE 100 UNIT/ML SUBCUT SCH (09:16)
[2019-12-24] MEDS: METOPROLOL TARTRATE 25 MG TABLET PO SCH ×2 (09:16→20:20)
[2019-12-24] MEDS: AMIODARONE 200 MG TABLET PO SCH ×2 (09:16→20:20)
[2019-12-24] MEDS: MOXIFLOXACIN 0.5% OPH SOLN 3 ML BOTTLE LEFT EYE SCH ×3 (09:17→20:21)
[2019-12-24] MEDS: methylPREDNISolone SOD SUC 40 MG/1 ML VIAL IV SCH ×2 (09:29→17:17)
[2019-12-24] MEDS: FAMOTIDINE 20 MG/2 ML VIAL IV SCH (20:20)
[2019-12-24] MEDS: fentaNYL INJ 2,500 MCG in SODIUM CHLORIDE 0.9% 450 ML IV PRN (20:48)
[2019-12-25] MEDS: methylPREDNISolone SOD SUC 40 MG/1 ML VIAL IV SCH ×3 (01:34→20:35)
[2019-12-25] MEDS: FUROSEMIDE 40 MG/4 ML VIAL IV SCH ×3 (01:35→17:40)
[2019-12-25] MEDS: INSULIN REGULAR 100 UNIT/ML SUBCUT SCH ×4 (01:40→17:41)
[2019-12-25 04:40] LABS: Basophils % 0.2 % (0.0-0.8); Hemoglobin 11.7 GM/DL (14.0-18.0); Immature Granulocytes % 0.7 %; Immature Granulocytes Absolute 0.04 #; Lymphocytes # 0.4 10*3/uL (1.4-4.0); Lymphocytes % 6.4 % (21.2-54.2); Mean Corpuscular HGB Conc 30.8 GM/DL (32-36); Mean Corpuscular Volume 96.7 FL (87-102); Mean Platelet Volume 11.7 FL (9.6-12.0); Monocytes % 3.4 % (1.7-12.7); Neutrophils % 89.3 % (38.7-73.9); Platelet Count 237 T/CUMM (130-400); Red Blood Count 3.93 MC/CUMM (3.8-5.5); Red Cell Distribution Width 14.1 % (9.3-17.3); White Blood Count 6.1 T/CUMM (4-12)
[2019-12-25 04:52] LABS: ABG Base Excess -4.4 MMOL/L (-2.5-2.5); ABG HCO3 20.7 MMOL/L (20-26); ABG Oxygen Saturation 94.1 % (95-100); ABG PCO2 60.8 MM HG (35-48); ABG PH 7.217 (7.35-7.45); ABG PO2 81.5 MM HG (80-95); ABG TCO2 22.4 MMOL/L (23-27); Allen Test Positive; Pt O2 Delivery Device Ventilator
[2019-12-25 05:22] LABS: Alanine Aminotransferase 11 U/L (16-61); Albumin 1.8 G/DL (3.4-5.0); Alkaline Phosphatase 245 U/L (45-117); Aspartate Amino Transferase 27 U/L (0-37); Bilirubin,Total < 0.39 MG/DL (0.2-1.0); Blood Urea Nitrogen 62 MG/DL (7-18); Calcium 7.5 MG/DL (8.5-10.1); Estimated Glom Filtration Rate 15 ML/MIN; Glucose 227 MG/DL (74-106); Osmolality,Calculated 292.2 MOS/KG (273-304); Total Protein 7.5 G/DL (6.4-8.3)
[2019-12-25] MEDS ORDERED: SODIUM POLYSTYRENE SULFATE 15 GM/60 ML BOTTLE PO ONE (06:49)
[2019-12-25] MEDS ORDERED: SODIUM BICARBONATE 50 MEQ/50 ML VIAL IV ONE (06:49)
[2019-12-25] MEDS: CALCIUM (CARBONATE) 500 MG TABLET PO SCH ×3 (07:47→17:41)
[2019-12-25] MEDS: INSULIN GLARGINE 100 UNIT/ML SUBCUT SCH (08:02)
[2019-12-25] MEDS: MIDODRINE 2.5 MG TABLET PO SCH ×3 (08:02→20:36)
[2019-12-25] MEDS: MOXIFLOXACIN 0.5% OPH SOLN 3 ML BOTTLE LEFT EYE SCH ×3 (08:02→20:37)
[2019-12-25] MEDS: ZINC GLUCONATE 50 MG TABLET PO SCH (08:02)
[2019-12-25] MEDS: AMIODARONE 200 MG TABLET PO SCH ×2 (08:02→20:36)
[2019-12-25] MEDS: METOPROLOL TARTRATE 25 MG TABLET PO SCH ×2 (08:02→20:36)
[2019-12-25] MEDS: HEPARIN 5,000 UNIT/1 ML VIAL SUBCUT SCH ×2 (08:02→20:36)
[2019-12-25] MEDS: MEROPENEM 500 MG in SODIUM CHLORIDE 0.9% 100 ML IV SCH (09:00)
[2019-12-25] MEDS: fentaNYL INJ 2,500 MCG in SODIUM CHLORIDE 0.9% 450 ML IV PRN (10:21)
[2019-12-25] MEDS: ALBUTEROL/IPRATROPIUM 3 ML NEB RESP TX SCH ×3 (11:30→19:42)
[2019-12-25 11:41] LABS: ABG Base Excess -2.1 MMOL/L (-2.5-2.5); ABG HCO3 22.7 MMOL/L (20-26); ABG Oxygen Saturation 97.3 % (95-100); ABG PCO2 55.6 MM HG (35-48); ABG PH 7.273 (7.35-7.45); ABG TCO2 23.4 MMOL/L (23-27)
[2019-12-25] MEDS: fentaNYL INJ 2,500 MCG in SODIUM CHLORIDE 0.9% 75 ML IV PRN ×2 (11:47→18:18)
[2019-12-25] MEDS ORDERED: MIDAZOLAM 100 MG in SODIUM CHLORIDE 0.9% 80 ML IV PRN (18:15)
[2019-12-25] MEDS: FAMOTIDINE 20 MG/2 ML VIAL IV SCH (20:36)
[2019-12-26] MEDS: FUROSEMIDE 40 MG/4 ML VIAL IV SCH ×3 (00:01→16:54)
[2019-12-26] MEDS: INSULIN REGULAR 100 UNIT/ML SUBCUT SCH ×4 (00:01→18:33)
[2019-12-26] MEDS: ALBUTEROL/IPRATROPIUM 3 ML NEB RESP TX SCH ×7 (00:09→23:26)
[2019-12-26] MEDS: fentaNYL INJ 2,500 MCG in SODIUM CHLORIDE 0.9% 75 ML IV PRN ×4 (00:49→21:32)
[2019-12-26 03:41] LABS: Basophils % 0.2 % (0.0-0.8); Hematocrit 31.5 VOL% (42.0-52.0); Immature Granulocytes % 1.2 %; Immature Granulocytes Absolute 0.07 #; Lymphocytes # 0.6 10*3/uL (1.4-4.0); Lymphocytes % 10.1 % (21.2-54.2); Mean Corpuscular HGB Conc 31.7 GM/DL (32-36); Mean Platelet Volume 11.4 FL (9.6-12.0); Monocytes % 4.6 % (1.7-12.7); Neutrophils % 83.9 % (38.7-73.9); Platelet Count 224 T/CUMM (130-400); Red Blood Count 3.28 MC/CUMM (3.8-5.5); Red Cell Distribution Width 14.1 % (9.3-17.3); White Blood Count 5.6 T/CUMM (4-12)
[2019-12-26 04:27] LABS: Alanine Aminotransferase 14 U/L (16-61); Albumin 1.7 G/DL (3.4-5.0); Alkaline Phosphatase 234 U/L (45-117); Aspartate Amino Transferase 24 U/L (0-37); Bilirubin,Total < 0.39 MG/DL (0.2-1.0); Blood Urea Nitrogen 71 MG/DL (7-18); Calcium 7.2 MG/DL (8.5-10.1); Estimated Glom Filtration Rate 15 ML/MIN; Glucose 217 MG/DL (74-106); Osmolality,Calculated 300.8 MOS/KG (273-304); Total Protein 6.6 G/DL (6.4-8.3)
[2019-12-26 04:48] LABS: ABG Oxygen Saturation 98.7 % (95-100); ABG PCO2 51.8 MM HG (35-48); ABG PH 7.301 (7.35-7.45); ABG PO2 152.4 MM HG (80-95); ABG TCO2 26.6 MMOL/L (23-27); Allen Test Positive; Pt O2 Delivery Device Ventilator
[2019-12-26] MEDS: INSULIN GLARGINE 100 UNIT/ML SUBCUT SCH (08:18)
[2019-12-26] MEDS: HEPARIN 5,000 UNIT/1 ML VIAL SUBCUT SCH ×2 (08:18→20:02)
[2019-12-26] MEDS: methylPREDNISolone SOD SUC 40 MG/1 ML VIAL IV SCH ×2 (08:18→20:01)
[2019-12-26] MEDS: MIDODRINE 2.5 MG TABLET PO SCH ×3 (08:19→20:02)
[2019-12-26] MEDS: AMIODARONE 200 MG TABLET PO SCH ×2 (08:19→20:02)
[2019-12-26] MEDS: ZINC GLUCONATE 50 MG TABLET PO SCH (08:19)
[2019-12-26] MEDS: MOXIFLOXACIN 0.5% OPH SOLN 3 ML BOTTLE LEFT EYE SCH ×3 (08:20→20:03)
[2019-12-26] MEDS: CALCIUM (CARBONATE) 500 MG TABLET PO SCH ×3 (08:20→16:38)
[2019-12-26] MEDS: METOPROLOL TARTRATE 25 MG TABLET PO SCH ×2 (08:20→10:39)
[2019-12-26] MEDS: MEROPENEM 500 MG in SYRINGE 1 EACH IV SCH (10:16)
[2019-12-26] MEDS: FAMOTIDINE 20 MG/2 ML VIAL IV SCH (20:02)
[2019-12-27] MEDS: FUROSEMIDE 40 MG/4 ML VIAL IV SCH ×2 (00:26→08:33)
[2019-12-27] MEDS: INSULIN REGULAR 100 UNIT/ML SUBCUT SCH ×3 (00:27→12:30)
[2019-12-27] MEDS: ALBUTEROL/IPRATROPIUM 3 ML NEB RESP TX SCH ×4 (03:04→15:09)
[2019-12-27 04:34] LABS: ABG Base Excess -0.9 MMOL/L (-2.5-2.5); ABG HCO3 23.7 MMOL/L (20-26); ABG Oxygen Saturation 97.9 % (95-100); ABG PCO2 50.7 MM HG (35-48); ABG PH 7.316 (7.35-7.45); ABG TCO2 23.4 MMOL/L (23-27); Allen Test Positive; Pt O2 Delivery Device Ventilator
[2019-12-27] MEDS: fentaNYL INJ 2,500 MCG in SODIUM CHLORIDE 0.9% 75 ML IV PRN ×2 (04:41→11:41)
[2019-12-27 04:55] LABS: Basophils % 0.1 % (0.0-0.8); Hematocrit 35.6 VOL% (42.0-52.0); Hemoglobin 11.3 GM/DL (14.0-18.0); Immature Granulocytes % 0.7 %; Immature Granulocytes Absolute 0.05 #; Lymphocytes # 0.4 10*3/uL (1.4-4.0); Lymphocytes % 6.1 % (21.2-54.2); Mean Corpuscular HGB Conc 31.7 GM/DL (32-36); Mean Corpuscular Volume 93.2 FL (87-102); Mean Platelet Volume 11.4 FL (9.6-12.0); Monocytes % 4.2 % (1.7-12.7); Neutrophils % 88.9 % (38.7-73.9); Platelet Count 291 T/CUMM (130-400); Red Blood Count 3.82 MC/CUMM (3.8-5.5); Red Cell Distribution Width 14.1 % (9.3-17.3); White Blood Count 6.9 T/CUMM (4-12)
[2019-12-27 05:14] LABS: Calcium 7.3 MG/DL (8.5-10.1)
[2019-12-27 08:15] VITALS: BP 153/100
[2019-12-27] MEDS: MOXIFLOXACIN 0.5% OPH SOLN 3 ML BOTTLE LEFT EYE SCH ×2 (08:27→15:15)
[2019-12-27] MEDS: CALCIUM (CARBONATE) 500 MG TABLET PO SCH ×2 (08:27→12:30)
[2019-12-27] MEDS: AMIODARONE 200 MG TABLET PO SCH (08:28)
[2019-12-27] MEDS: ZINC GLUCONATE 50 MG TABLET PO SCH (08:28)
[2019-12-27] MEDS: MIDODRINE 2.5 MG TABLET PO SCH ×2 (08:28→15:15)
[2019-12-27] MEDS: HEPARIN 5,000 UNIT/1 ML VIAL SUBCUT SCH (08:28)
[2019-12-27] MEDS: methylPREDNISolone SOD SUC 40 MG/1 ML VIAL IV SCH (08:29)
[2019-12-27] MEDS: INSULIN GLARGINE 100 UNIT/ML SUBCUT SCH (08:29)
[2019-12-27] MEDS ORDERED: carvediloL 12.5 MG TABLET PO SCH (09:43)
[2019-12-27] MEDS: MEROPENEM 500 MG in SYRINGE 1 EACH IV SCH (10:12)
[2019-12-27] MEDS ORDERED: PNEUMOCOCCAL VACCINE (23 VALENT) 0.5 ML VIAL IM ONE (13:30)
== END 2019-12-27 15:50 | DRG 870 ==
LOC: EDUNIT# → EDBD → N.ED 17:32 → SUATTDRO 20:22 → N.EDINP 20:22 → N.ICU 12-07 15:33 → N.3E 12-08 17:49 → N.ICU 12-18 21:14
PROVIDERS: ADMIT Internal Medicine; ATTEND Internal Medicine